=== PATIENT | female | born 1955 | race Caucasian/White ===

== ENCOUNTER 2016-09-30 10:51 | Inpatient (IN) | payer MEDICARE, OTHER ==
[~2016-09-30] VITALS: Ht 172.7 cm; Wt 99.0 kg
[2016-09-30 12:16] LABS: Basophils # (auto) 0 uL; Basophils % (auto) 0.3 % (0.0-2.0); Eosinophils # (auto) 0.1 uL; Eosinophils % (auto) 0.6 % (0.0-7.0); Hematocrit 39.1 % (36.0-46.0); Hemoglobin 13.2 g/dL (12.2-16.2); Lymphocytes # (auto) 1.8 uL; Lymphocytes % (auto) 12.9 % (10.0-50.0); Mean Corpuscular Hemoglobin 34.2 pg (28.0-32.0); Mean Corpuscular Hgb Conc. 33.8 g/dL (32.0-36.0); Mean Corpuscular Volume 101.2 fL (80.0-100.0); Mean Platelet Volume 7.8 fL (7.4-10.4); Monocytes # (auto) 1.2 uL; Monocytes % (auto) 8.5 % (0.0-12.0); Neutrophils # (auto) 10.8 uL; Neutrophils % (auto) 77.7 % (37.0-80.0); Platelet Count (auto) 416 10^3/uL (140-450); Red Cell Distribution Width 14.4 % (11.6-16.0); White Blood Cell 13.9 10^3/uL (4.4-10.8)
[2016-09-30] MEDS ORDERED: SODIUM CHLORIDE 0.9% 500 ML IVB ONE (12:36)
[2016-09-30 12:40] LABS: Albumin 3.1 g/dL (3.4-5.0); Alkaline Phosphatase 140 U/L (45-117); Anion Gap 10 (5-15); Aspartate Aminotransferase 165 U/L (15-37); BUN/Creatinine Ratio 28.4; Bilirubin, Total 1.1 mg/dL (0.2-1.0); Blood Urea Nitrogen 19 mg/dL (7-18); Carbon Dioxide 28 mmol/L (21-32); Chloride 97 mmol/L (98-107); GFR African American 116 mL/min; GFR Non-African American 96 mL/min; Glucose 112 mg/dL (74-106); Magnesium 2.5 mg/dL (1.6-2.6); Potassium 3.5 mmol/L (3.5-5.1); Sodium 135 mmol/L (136-145); Total Protein 6.4 g/dL (6.4-8.2)
[2016-09-30 15:36] LABS: Urine RBC None Seen /hpf (0 - 4)
[2016-09-30 15:54] LABS: Urine Bilirubin Negative (Negative); Urine Blood Negative /uL (Negative); Urine Color Yellow (Yellow); Urine Glucose Normal (Normal); Urine Ketone Negative (Negative); Urine Nitrite Negative (Negative); Urine Squamous Epithelial Cell FEW /hpf (<5); Urine Urobilinogen Normal (Negative)
[2016-09-30] MEDS ORDERED: cefTRIAXone 1GM/50ML D5W 50 ML IV ONE (16:45)
[2016-09-30] MEDS ORDERED: NALBUPHINE HCL 10 MG/1ml INJECTION IV ONE (17:00)
[2016-09-30] MEDS ORDERED: ONDANSETRON HCL 4 MG/2 ML VIAL IV ONE (17:00)
[2016-09-30] MEDS ORDERED: ONDANSETRON HCL 4 MG/2 ML VIAL IV PRN (18:45)
[2016-09-30] MEDS ORDERED: ACETAMINOPHEN 325 MG TAB PO PRN (18:45)
[2016-09-30] MEDS ORDERED: TEMAZEPAM 15 MG CAP PO PRN (18:45)
[2016-09-30] MEDS ORDERED: DOCUSATE SOD 100 MG CAP PO PRN (18:45)
[2016-09-30] MEDS ORDERED: MORPHINE SULF INJ 2 MG/ML SYRINGE 1ML IV PRN (18:45)
[2016-09-30] MEDS ORDERED: ALENDRONATE SODIUM 10 MG TAB PO SCH (18:45)
[2016-09-30] MEDS ORDERED: NITROGLYCERIN 0.4 MG SL TAB SL PRN (18:45)
[2016-09-30] MEDS ORDERED: amLODIPine BESYLATE 5 MG TAB PO ONE (19:00)
[2016-09-30] MEDS ORDERED: ENOXAPARIN SOD 40 MG/0.4 ML SYRINGE SC ONE (19:00)
[2016-09-30] MEDS ORDERED: POTASSIUM CHL 10 Meq TABLET PO ONE (19:00)
[2016-09-30] MEDS ORDERED: FUROSEMIDE 20 MG TAB PO ONE (19:00)
[2016-09-30] MEDS ORDERED: PANTOPRAZOLE 40 MG TAB PO ONE (19:00)
[2016-09-30] MEDS: MULTIPLE VITAMIN TAB PO SCH (19:24)
[2016-09-30 21:45] VITALS: BP 122/71
[2016-09-30 22:00] VITALS: BP 122/71
[2016-09-30] MEDS: MORPHINE SULF 30 mg ER tab PO SCH (22:00)
[2016-09-30] MEDS ORDERED: FAMOTIDINE 20 MG TAB PO SCH (22:00)
[2016-09-30] MEDS: GABAPENTIN 400 MG CAP PO SCH (23:10)
[2016-09-30] MEDS: HYDROcodone-ACET 5/325MG TAB PO PRN (23:10)
[2016-09-30] MEDS: SODIUM CHLOR 0.9% PF (SALINE LOCK) 10ML VIAL IV SCH (23:10)
[2016-09-30] MEDS: NORTRIPTYLINE HCL 25 MG CAP PO SCH (23:11)
[2016-09-30] MEDS: PARoxetine 20 MG TAB PO SCH (23:12)
[2016-09-30] MEDS: ACYCLOVIR 400 MG TAB PO SCH (23:12)
[2016-10-01] MEDS: CYCLOBENZAPRINE HCL 10 MG TAB PO PRN ×2 (00:47→15:05)
[2016-10-01] MEDS: HYDROcodone-ACET 5/325MG TAB PO PRN ×3 (05:22→17:40)
[2016-10-01 05:37] VITALS: BP 125/66
[2016-10-01] MEDS: FUROSEMIDE 20 MG TAB PO SCH ×2 (06:33→17:41)
[2016-10-01] MEDS: SODIUM CHLOR 0.9% PF (SALINE LOCK) 10ML VIAL IV SCH ×3 (06:33→21:54)
[2016-10-01] MEDS: ACYCLOVIR 400 MG TAB PO SCH ×3 (06:34→21:55)
[2016-10-01] MEDS: GABAPENTIN 400 MG CAP PO SCH ×3 (06:34→21:54)
[2016-10-01] MEDS: LEVOTHYROXINE SODIUM 50 MCG TAB PO SCH (06:34)
[2016-10-01 07:15] LABS: Basophils # (auto) 0.1 uL; Basophils % (auto) 0.6 % (0.0-2.0); DEFINITIVE VIEW TRANSMISSION; Eosinophils # (auto) 0.3 uL; Hematocrit 40.7 % (36.0-46.0); Hemoglobin 13.4 g/dL (12.2-16.2); Lymphocytes # (auto) 3.1 uL; Lymphocytes % (auto) 28.5 % (10.0-50.0); Mean Corpuscular Hemoglobin 33.8 pg (28.0-32.0); Mean Corpuscular Hgb Conc. 32.8 g/dL (32.0-36.0); Mean Corpuscular Volume 103.1 fL (80.0-100.0); Mean Platelet Volume 7.8 fL (7.4-10.4); Monocytes # (auto) 1.1 uL; Monocytes % (auto) 10.2 % (0.0-12.0); Neutrophils # (auto) 6.2 uL; Neutrophils % (auto) 57.7 % (37.0-80.0); Platelet Count (auto) 431 10^3/uL (140-450); Red Cell Distribution Width 15.1 % (11.6-16.0); White Blood Cell 10.8 10^3/uL (4.4-10.8)
[2016-10-01 07:17] VITALS: BP 106/58
[2016-10-01 07:28] LABS: INR 0.98 (0.9-1.15); Prothrombin Time 10.6 sec (9.37-12.3)
[2016-10-01 07:44] LABS: BUN/Creatinine Ratio 15.9; Bilirubin, Total 0.7 mg/dL (0.2-1.0); Calcium 8.8 mg/dL (8.5-10.1); Total Protein 6.3 g/dL (6.4-8.2)
[2016-10-01 07:46] LABS: Potassium 2.9 mmol/L (3.5-5.1)
[2016-10-01] MEDS: BOOST PLUS 8 ounce PO SCH ×3 (08:00→17:41)
[2016-10-01] MEDS: cefTRIAXone 1GM/50ML D5W 50 ML IV SCH (09:33)
[2016-10-01] MEDS: ENOXAPARIN SOD 40 MG/0.4 ML SYRINGE SC SCH (09:33)
[2016-10-01] MEDS: POTASSIUM CHL 10 Meq TABLET PO SCH (09:34)
[2016-10-01] MEDS: MULTIPLE VITAMIN TAB PO SCH (09:34)
[2016-10-01] MEDS: MORPHINE SULF 30 mg ER tab PO SCH ×2 (09:34→21:54)
[2016-10-01] MEDS: PANTOPRAZOLE 40 MG TAB PO SCH (09:35)
[2016-10-01] MEDS: amLODIPine BESYLATE 5 MG TAB PO SCH (09:35)
[2016-10-01] MEDS: PARoxetine 20 MG TAB PO SCH ×2 (09:35→21:54)
[2016-10-01] MEDS: CHLORTHALIDONE 25MG PO SCH (09:57)
[2016-10-01] MEDS ORDERED: POTASSIUM CHL 20 Meq TABLET PO ONE ×2 (10:00→17:15)
[2016-10-01 11:42] VITALS: BP 119/82
[2016-10-01 15:55] VITALS: BP 115/57
[2016-10-01] MEDS: NORTRIPTYLINE HCL 25 MG CAP PO SCH (21:54)
[2016-10-01 22:00] VITALS: BP 111/61
[2016-10-02] MEDS: HYDROcodone-ACET 5/325MG TAB PO PRN ×2 (02:07→06:11)
[2016-10-02 05:00] VITALS: BP 100/61
[2016-10-02] MEDS: SODIUM CHLOR 0.9% PF (SALINE LOCK) 10ML VIAL IV SCH (06:01)
[2016-10-02] MEDS: ACYCLOVIR 400 MG TAB PO SCH (06:02)
[2016-10-02] MEDS: FUROSEMIDE 20 MG TAB PO SCH (06:02)
[2016-10-02] MEDS: GABAPENTIN 400 MG CAP PO SCH (06:02)
[2016-10-02 06:10] LABS: Albumin 2.8 g/dL (3.4-5.0); Potassium 3.1 mmol/L (3.5-5.1)
[2016-10-02 06:13] LABS: Bilirubin, Total 0.3 mg/dL (0.2-1.0); Total Protein 5.7 g/dL (6.4-8.2)
[2016-10-02] MEDS: LEVOTHYROXINE SODIUM 50 MCG TAB PO SCH (06:17)
[2016-10-02] MEDS: BOOST PLUS 8 ounce PO SCH ×2 (08:00→12:00)
[2016-10-02 08:08] VITALS: BP 117/72
[2016-10-02] MEDS: CHLORTHALIDONE 25MG PO SCH (10:00)
[2016-10-02] MEDS: amLODIPine BESYLATE 5 MG TAB PO SCH (10:13)
[2016-10-02] MEDS: cefTRIAXone 1GM/50ML D5W 50 ML IV SCH (10:13)
[2016-10-02] MEDS: MULTIPLE VITAMIN TAB PO SCH (10:13)
[2016-10-02] MEDS: POTASSIUM CHL 10 Meq TABLET PO SCH (10:14)
[2016-10-02] MEDS: ENOXAPARIN SOD 40 MG/0.4 ML SYRINGE SC SCH (10:14)
[2016-10-02] MEDS: PARoxetine 20 MG TAB PO SCH (10:14)
[2016-10-02] MEDS: PANTOPRAZOLE 40 MG TAB PO SCH (10:14)
[2016-10-02] MEDS: MORPHINE SULF 30 mg ER tab PO SCH (10:14)
[2016-10-02] MEDS ORDERED: POTASSIUM CHL 20 Meq TABLET PO ONE (10:15)
[2016-10-02 11:13] VITALS: BP 117/72
[2016-10-02] MEDS: CYCLOBENZAPRINE HCL 10 MG TAB PO PRN (11:46)
[2016-10-02 12:47] VITALS: BP 109/58
== END 2016-10-02 14:20 | disposition home health service (06) | DRG 91 ==
LOC: ER 10:55 → TELE 10:56 → TELE-WESTW 21:50
PROVIDERS: ADMIT Internal Medicine; ATTEND Internal Medicine
DX: G92 Toxic encephalopathy (principal); I50.43 Acute on chronic combined systolic (congestive) and diastolic (congestive) heart failure; N39.0 Urinary tract infection, site not specified; E87.1 Hypo-osmolality and hyponatremia; E44.0 Moderate protein-calorie malnutrition; G89.4 Chronic pain syndrome; E78.5 Hyperlipidemia, unspecified; I11.0 Hypertensive heart disease with heart failure; R55 Syncope and collapse; E03.9 Hypothyroidism, unspecified; F10.20 Alcohol dependence, uncomplicated; F17.210 Nicotine dependence, cigarettes, uncomplicated; M19.90 Unspecified osteoarthritis, unspecified site; T50.905A Adverse effect of unspecified drugs, medicaments and biological substances, initial encounter; Z90.89 Acquired absence of other organs; Z88.1 Allergy status to other antibiotic agents; Z68.33 Body mass index [BMI] 33.0-33.9, adult
CPT/HCPCS: 36415; 70450; 71020; 74176; 76705; 80053; 80307; 80320; 81001; 82140; 82962; 83735; 84443; 84484; 85025; 85610; 87040; 87086; 92610; 93005; 93306; 93886; 94761; 96361; 96365; 96372; 96375; J0696; J2405

== ENCOUNTER 2021-02-11 14:13 | Inpatient (IN) | payer MEDICARE, OTHER ==
[~2021-02-11] VITALS: Ht 165.1 cm; Wt 83.5 kg
[2021-02-11 14:57] LABS: Basophils # (auto) 0.2 10 ^3/uL (0-0.2); Basophils % (auto) 1.3 % (0.0-2.0); Eosinophils # (auto) 0.3 10 ^3/uL (0-0.8); Eosinophils % (auto) 1.9 % (0.0-7.0); Hematocrit 33.3 % (36.0-46.0); Hemoglobin 10.7 g/dL (12.2-16.2); Lymphocytes # (auto) 2.2 10 ^3/uL (0.4-5.4); Lymphocytes % (auto) 14.6 % (10.0-50.0); Mean Corpuscular Hemoglobin 27.9 pg (28.0-32.0); Mean Corpuscular Hgb Conc. 32.1 g/dL (32.0-36.0); Mean Corpuscular Volume 87.1 fL (80.0-100.0); Monocytes # (auto) 1.9 10 ^3/uL (0-1.3); Monocytes % (auto) 12.9 % (0.0-12.0); Neutrophils # (auto) 10.3 10 ^3/uL (1.6-8.6); Neutrophils % (auto) 69.3 % (37.0-80.0); Nucleated Red Blood Cells % 0.1 %; Red Blood Cells 3.82 10^6/uL (4.0-5.20); Red Cell Distribution Width 17.1 % (11.8-14.3); White Blood Cell 14.8 10^3/uL (4.4-10.8)
[2021-02-11 15:11] LABS: BUN/Creatinine Ratio 15.5; Calcium 8.7 mg/dL (8.5-10.1); Potassium 3.3 mmol/L (3.5-5.1)
[2021-02-11 15:13] LABS: Bilirubin, Total 1.1 mg/dL (0.2-1.0); Total Protein 6.4 g/dL (6.4-8.2)
[2021-02-11 15:14] LABS: INR 1.21 (0.9-1.15)
[2021-02-11] MEDS ORDERED: MORPHINE SULFATE 4 MG/ML SYR/VIAL IV ONE (17:45)
[2021-02-11] MEDS ORDERED: ONDANSETRON HCL 4 MG/2 ML VIAL IV ONE (17:45)
[2021-02-11] MEDS ORDERED: HYDROcodone-ACET 5/325MG TAB PO PRN (19:45)
[2021-02-11] MEDS ORDERED: ACETAMINOPHEN 500 MG TAB PO PRN (19:45)
[2021-02-11] MEDS ORDERED: MORPHINE SULFATE INJECTION 2 MG/ML SYRG IV PRN (19:45)
[2021-02-11] MEDS ORDERED: methylPREDNISolone SOD SUCC 125 MG/2 ML VL IV ONE (19:45)
[2021-02-11] MEDS ORDERED: NITROGLYCERIN 0.4 MG SL TAB SL PRN (19:45)
[2021-02-11] MEDS ORDERED: ONDANSETRON HCL 4 MG/2 ML VIAL IV PRN (19:45)
[2021-02-11] MEDS ORDERED: LORazepam 2MG/ML-1ML VIAL IV PRN (19:45)
[2021-02-11 23:00] LABS: Alcohol, Urine < 3.0 mg/dL (0-10); Amphetamine Screen, Urine NEGATIVE (NEGATIVE); Barbiturate Scree,Urine NEGATIVE (NEGATIVE); Benzodiazephine Screen, Urine NEGATIVE (NEGATIVE); Cannabinoid Screen, Urine NEGATIVE (NEGATIVE); Cocaine Screen, Urine NEGATIVE (NEGATIVE); Opiate Scree,Urine POSITIVE (NEGATIVE); Phencyclidine Screen, Urine NEGATIVE (NEGATIVE)
[2021-02-11] MEDS: BUDESONIDE (INHALATION) 0.5 MG/2 ML NEB NEB SCH (23:00)
[2021-02-12 05:22] LABS: Basophils # (auto) 0.1 10 ^3/uL (0-0.2); Basophils % (auto) 1.1 % (0.0-2.0); Eosinophils # (auto) 0 10 ^3/uL (0-0.8); Eosinophils % (auto) 0.1 % (0.0-7.0); Hematocrit 33.1 % (36.0-46.0); Hemoglobin 10.7 g/dL (12.2-16.2); Lymphocytes # (auto) 0.4 10 ^3/uL (0.4-5.4); Lymphocytes % (auto) 6.1 % (10.0-50.0); Mean Corpuscular Hemoglobin 28.2 pg (28.0-32.0); Mean Corpuscular Hgb Conc. 32.2 g/dL (32.0-36.0); Mean Corpuscular Volume 87.6 fL (80.0-100.0); Monocytes # (auto) 0.1 10 ^3/uL (0-1.3); Monocytes % (auto) 2.1 % (0.0-12.0); Neutrophils # (auto) 6.5 10 ^3/uL (1.6-8.6); Neutrophils % (auto) 90.6 % (37.0-80.0); Red Blood Cells 3.77 10^6/uL (4.0-5.20); Red Cell Distribution Width 17.9 % (11.8-14.3); White Blood Cell 7.1 10^3/uL (4.4-10.8)
[2021-02-12 05:41] LABS: BUN/Creatinine Ratio 12.7; Calcium 8.3 mg/dL (8.5-10.1); Potassium 3.8 mmol/L (3.5-5.1)
[2021-02-12] MEDS: ALBUTEROL SULF 2.5 MG/0.5ML(0.5%) NEB SOLN NEB SCH ×3 (06:05→18:52)
[2021-02-12] MEDS: IPRATROPIUM BROM 0.5 MG/2.5ML INH SOL NEB SCH ×3 (06:05→18:52)
[2021-02-12] MEDS: BUDESONIDE (INHALATION) 0.5 MG/2 ML NEB NEB SCH ×2 (06:06→18:52)
[2021-02-12] MEDS: cefTRIAXone 1GM/50ML D5W 50 ML IV SCH (08:45)
[2021-02-12] MEDS: AZITHROMYCIN 500MG/ 250ML 250 ML IV SCH (09:43)
[2021-02-12] MEDS: FAMOTIDINE 20 MG TAB PO SCH (09:43)
[2021-02-12] MEDS ORDERED: ALBU108A5 INH (11:23)
[2021-02-12] MEDS ORDERED: PANT40T PO (11:23)
[2021-02-12] MEDS ORDERED: POTA-264 PO (11:23)
[2021-02-12] MEDS ORDERED: PERCOT PO (11:23)
[2021-02-12] MEDS ORDERED: BUSP7.5T8 PO (11:23)
[2021-02-12] MEDS ORDERED: PARO1TAB33 PO (11:23)
[2021-02-12] MEDS ORDERED: SUCR1TAB PO (11:23)
[2021-02-12] MEDS ORDERED: BUDE1AER4 INH (11:23)
[2021-02-12] MEDS ORDERED: AMLO-489 PO (11:23)
[2021-02-12] MEDS ORDERED: CYCL-614 PO (11:23)
[2021-02-12] MEDS ORDERED: HYDRX10T PO (11:23)
[2021-02-12] MEDS ORDERED: ALEN70TA74 PO (11:23)
[2021-02-12] MEDS ORDERED: GABA800T97 PO (11:23)
[2021-02-12] MEDS: guaiFENesin-DM 100/10mg/5ml SYR PO PRN ×3 (12:53→23:21)
[2021-02-12] MEDS: MORPHINE SULFATE INJECTION 2 MG/ML SYRG IV PRN ×2 (14:15→20:36)
[2021-02-12 17:00] VITALS: BP 111/71
[2021-02-12 17:16] VITALS: BP 111/71
[2021-02-12] MEDS ORDERED: CEL100T PO (17:26)
[2021-02-12] MEDS ORDERED: LEVO50TA7 PO (17:26)
[2021-02-12] MEDS ORDERED: FURO40TA4 PO (17:26)
[2021-02-12] MEDS ORDERED: APIX5TAB PO (17:26)
[2021-02-12 22:00] VITALS: BP 116/51
[2021-02-13] MEDS: MORPHINE SULFATE INJECTION 2 MG/ML SYRG IV PRN ×2 (02:33→19:08)
[2021-02-13 05:00] VITALS: BP 110/56
[2021-02-13] MEDS: IPRATROPIUM BROM 0.5 MG/2.5ML INH SOL NEB SCH ×3 (06:00→18:31)
[2021-02-13] MEDS: ALBUTEROL SULF 2.5 MG/0.5ML(0.5%) NEB SOLN NEB SCH ×3 (06:00→18:31)
[2021-02-13 06:40] LABS: Basophils # (auto) 0.1 10 ^3/uL (0-0.2); Basophils % (auto) 0.8 % (0.0-2.0); Eosinophils # (auto) 0.1 10 ^3/uL (0-0.8); Eosinophils % (auto) 0.9 % (0.0-7.0); Hematocrit 30.4 % (36.0-46.0); Hemoglobin 10.1 g/dL (12.2-16.2); Lymphocytes # (auto) 2.8 10 ^3/uL (0.4-5.4); Lymphocytes % (auto) 19.5 % (10.0-50.0); Mean Corpuscular Hgb Conc. 33.1 g/dL (32.0-36.0); Mean Corpuscular Volume 87.5 fL (80.0-100.0); Monocytes # (auto) 1.8 10 ^3/uL (0-1.3); Monocytes % (auto) 12.6 % (0.0-12.0); Neutrophils # (auto) 9.6 10 ^3/uL (1.6-8.6); Neutrophils % (auto) 66.2 % (37.0-80.0); Nucleated Red Blood Cells % 0.1 %; Red Blood Cells 3.48 10^6/uL (4.0-5.20); Red Cell Distribution Width 17.8 % (11.8-14.3); White Blood Cell 14.5 10^3/uL (4.4-10.8)
[2021-02-13] MEDS ORDERED: VANCOMYCIN HCL 1000 MG VL ONE (07:08)
[2021-02-13] MEDS ORDERED: fentaNYL CITRATE 100 MCG/2 ML VL ONE (07:29)
[2021-02-13] MEDS ORDERED: MIDAZOLAM HCL 2MG/2ML 2ml VIAL (1mg/ml) ONE (07:30)
[2021-02-13] MEDS ORDERED: LIDOCAINE 1% HCL (LOCAL ANESTH.) INJ 20ML MDV ONE (07:40)
[2021-02-13] MEDS ORDERED: DexAMETHasone SOD PHOS 10MG/1ML VIAL INJ ONE (07:48)
[2021-02-13] MEDS ORDERED: PROPOFOL 10 MG/ML 20 ML IV ONE (07:48)
[2021-02-13] MEDS ORDERED: MIDAZOLAM HCL 2MG/2ML 2ml VIAL (1mg/ml) IV PRN (08:15)
[2021-02-13] MEDS ORDERED: MORPHINE SULFATE 4 MG/ML SYR/VIAL IV PRN (08:15)
[2021-02-13] MEDS ORDERED: hydrALAZINE HCL 20 MG/ML VL IV PRN (08:15)
[2021-02-13] MEDS ORDERED: ONDANSETRON HCL 4 MG/2 ML VIAL IV PRN (08:15)
[2021-02-13] MEDS ORDERED: LABETALOL HCL 5 MG/ML 4ML SYRINGE IV PRN (08:15)
[2021-02-13] MEDS ORDERED: HYDROmorphone HCL 2 MG/ML VL IV PRN (08:15)
[2021-02-13] MEDS ORDERED: ePHEDrine SULFATE 50 MG/ML AMP IV PRN (08:15)
[2021-02-13] MEDS ORDERED: ACCU-CHEK COMFORT CURVE STRIP VI ONE (08:15)
[2021-02-13 09:06] LABS: BUN/Creatinine Ratio 20.7; Calcium 8.7 mg/dL (8.5-10.1); Potassium 4.1 mmol/L (3.5-5.1)
[2021-02-13] MEDS: cefTRIAXone 1GM/50ML D5W 50 ML IV SCH (09:49)
[2021-02-13] MEDS: methylPREDNISolone SOD SUCC 40 MG/ML VL IV SCH (09:49)
[2021-02-13] MEDS: FAMOTIDINE 20 MG TAB PO SCH (09:50)
[2021-02-13] MEDS: AZITHROMYCIN 500MG/ 250ML 250 ML IV SCH (10:00)
[2021-02-13] MEDS: BUDESONIDE (INHALATION) 0.5 MG/2 ML NEB NEB SCH ×2 (12:05→18:31)
[2021-02-13 13:00] VITALS: BP 115/67
[2021-02-13 14:54] VITALS: BP 115/67
[2021-02-13] MEDS: guaiFENesin-DM 100/10mg/5ml SYR PO PRN ×2 (16:35→21:44)
[2021-02-13 17:00] VITALS: BP 116/65
[2021-02-13 22:00] VITALS: BP 135/77
[2021-02-14 05:00] VITALS: BP 140/63
[2021-02-14] MEDS: BUDESONIDE (INHALATION) 0.5 MG/2 ML NEB NEB SCH ×2 (07:00→18:38)
[2021-02-14] MEDS: ALBUTEROL SULF 2.5 MG/0.5ML(0.5%) NEB SOLN NEB SCH ×3 (07:00→18:38)
[2021-02-14] MEDS: IPRATROPIUM BROM 0.5 MG/2.5ML INH SOL NEB SCH ×3 (07:00→18:38)
[2021-02-14] MEDS: cefTRIAXone 1GM/50ML D5W 50 ML IV SCH (08:49)
[2021-02-14] MEDS: guaiFENesin-DM 100/10mg/5ml SYR PO PRN ×2 (08:53→14:12)
[2021-02-14] MEDS: FAMOTIDINE 20 MG TAB PO SCH (09:05)
[2021-02-14] MEDS: MORPHINE SULFATE INJECTION 2 MG/ML SYRG IV PRN ×2 (09:05→13:57)
[2021-02-14] MEDS: methylPREDNISolone SOD SUCC 40 MG/ML VL IV SCH (09:06)
[2021-02-14] MEDS: AZITHROMYCIN 500MG/ 250ML 250 ML IV SCH (10:11)
[2021-02-14 11:28] VITALS: BP 140/89
[2021-02-14] MEDS ORDERED: PRED1PAK9 PO (15:40)
[2021-02-14] MEDS ORDERED: DOX100T PO (15:40)
[2021-02-14 17:00] VITALS: BP 142/80
[2021-02-14] MEDS ORDERED: DOXYCYCLINE 100 MG TAB/CAP PO SCH (22:00)
== END 2021-02-14 20:15 | disposition home health service (06) | DRG 498 ==
LOC: EDBD 14:13 → ER 14:13 → TELE 19:31 → TELE-WESTW 02-12 16:48
PROVIDERS: ADMIT Nurse Practitioner Acute Care; ATTEND Internal Medicine Pulmonary Disease
PROC: 0QPB04Z Removal of Internal Fixation Device from Right Lower Femur, Open Approach (ICD-10-PCS; principal; 2021-02-13 07:23)
DX: T84.84XA Pain due to internal orthopedic prosthetic devices, implants and grafts, initial encounter (principal); J96.01 Acute respiratory failure with hypoxia; J18.9 Pneumonia, unspecified organism; J44.1 Chronic obstructive pulmonary disease with (acute) exacerbation; E44.0 Moderate protein-calorie malnutrition; J44.0 Chronic obstructive pulmonary disease with (acute) lower respiratory infection; F17.210 Nicotine dependence, cigarettes, uncomplicated; D64.9 Anemia, unspecified; Z20.822 Contact with and (suspected) exposure to COVID-19; I10 Essential (primary) hypertension; E78.5 Hyperlipidemia, unspecified; Y83.8 Other surgical procedures as the cause of abnormal reaction of the patient, or of later complication, without mention of misadventure at the time of the procedure; W18.39XA Other fall on same level, initial encounter; E87.6 Hypokalemia; Z88.0 Allergy status to penicillin; Z90.89 Acquired absence of other organs; Z68.30 Body mass index [BMI] 30.0-30.9, adult; Y93.89 Activity, other specified; Y92.098 Other place in other non-institutional residence as the place of occurrence of the external cause; Y99.8 Other external cause status
CPT/HCPCS: 36415; 71045; 73502; 73560; 73562; 76000; 80048; 80053; 80307; 82962; 83036; 84702; 85025; 85610; 85730; 86850; 86900; 86901; 87426; 87804; 93005; 93971; 94640; G0378; J0696; J1100; J2001; J2250; J2704

== ENCOUNTER 2021-05-10 11:26 | Inpatient (IN) | payer MEDICARE ==
[~2021-05-10] VITALS: Ht 152.4 cm; Wt 79.9 kg
[~2021-05-10 11:26] MED LIST: ALBU108A5 INH; ALEN70TA74 PO; AMLO-489 PO; APIX5TAB PO; BUDE1AER4 INH; BUSP7.5T8 PO; CEL100T PO; CYCL-614 PO; DOX100T PO; FURO40TA4 PO; GABA800T97 PO; HYDRX10T PO; LEVO50TA7 PO; PANT40T PO; PARO1TAB33 PO; PERCOT PO; POTA-264 PO; PRED1PAK9 PO; SUCR1TAB PO
[2021-05-10] MEDS ORDERED: SODIUM CHLORIDE 0.9% 1,000 ML IVB ONE (11:45)
[2021-05-10 13:13] LABS: Hemoglobin 12.2 g/dL (12.2-16.2)
[2021-05-10 13:15] LABS: Hematocrit 38.9 % (36.0-46.0); Mean Corpuscular Hemoglobin 23.8 pg (28.0-32.0); Mean Corpuscular Hgb Conc. 31.3 g/dL (32.0-36.0); Mean Corpuscular Volume 75.8 fL (80.0-100.0); Red Blood Cells 5.13 10^6/uL (4.0-5.20); White Blood Cell 28.1 10^3/uL (4.4-10.8)
[2021-05-10 13:18] LABS: Urine Bacteria NONE SEEN /hpf (None Seen); Urine Blood Negative /uL (Negative); Urine Specific Gravity 1.016 (1.001-1.035); Urine WBC 1 /hpf (0 - 5)
[2021-05-10 13:32] LABS: Albumin 3.8 g/dL (3.4-5.0); Calcium 9.4 mg/dL (8.5-10.1); Magnesium 2.8 mg/dL (1.6-2.6)
[2021-05-10 13:36] LABS: Red Cell Distribution Width 23.1 % (11.8-14.3)
[2021-05-10 13:38] LABS: Basophils % (manual) 0 (0.0-2.0); Blast Cells 0; Metamyelocytes % 0; Myelocytes % 0; Promyelocytes % 0; Reactive Lymphocytes 0
[2021-05-10 13:39] LABS: Amphetamine Screen, Urine NEGATIVE (NEGATIVE); Barbiturate Scree,Urine NEGATIVE (NEGATIVE); Benzodiazephine Screen, Urine NEGATIVE (NEGATIVE); Cannabinoid Screen, Urine NEGATIVE (NEGATIVE); Cocaine Screen, Urine NEGATIVE (NEGATIVE); Opiate Scree,Urine POSITIVE (NEGATIVE); Phencyclidine Screen, Urine NEGATIVE (NEGATIVE)
[2021-05-10 13:41] LABS: BUN/Creatinine Ratio 27.1; Bilirubin, Total 3.5 mg/dL (0.2-1.0); CRP High Sensitivity 6.5 mg/dL (< 0.3); Total Protein 7.8 g/dL (6.4-8.2)
[2021-05-10 13:52] LABS: Potassium 2.7 mmol/L (3.5-5.1)
[2021-05-10 13:55] LABS: Band Neutrophils % (manual) 3; Eosinophils % (manual) 1 (0-7); Lymphocytes % (manual) 6 (10.0-50.0); Monocytes % (manual) 10 (0-12)
[2021-05-10] MEDS ORDERED: POTASSIUM CHL 20MEQ/50ML 50 ML IV ONE (14:15)
[2021-05-10] MEDS ORDERED: NITROGLYCERIN 0.4 MG SL TAB SL PRN (14:30)
[2021-05-10] MEDS ORDERED: DOCUSATE SOD 100 MG CAP PO PRN (14:30)
[2021-05-10] MEDS ORDERED: MORPHINE SULFATE INJECTION 2 MG/ML SYRG IV PRN (14:30)
[2021-05-10] MEDS ORDERED: ONDANSETRON HCL 4 MG/2 ML VIAL IV PRN (14:30)
[2021-05-10] MEDS ORDERED: ACETAMINOPHEN 325 MG TAB PO PRN (14:30)
[2021-05-10] MEDS ORDERED: VANCOMYCIN PER PHARMACY 0 MG IV SCH (14:45)
[2021-05-10] MEDS ORDERED: DEXTROSE (50%) 50ML SYRG IV PRN (15:00)
[2021-05-10] MEDS ORDERED: cefTRIAXone 1GM/50ML D5W 50 ML IV SCH (15:45)
[2021-05-10] MEDS: cefTRIAXone 1GM/50ML D5W 50 ML IV SCH (16:28)
[2021-05-10] MEDS ORDERED: VANCOMYCIN 1GM/250ML 250 ML IV ONE (16:30)
[2021-05-10] MEDS: ACCU-CHEK COMFORT CURVE STRIP VI SCH ×2 (17:00→23:59)
[2021-05-10] MEDS: InsuLIN REG 1unit/0.01ml Soln (100units/ml) SC SCH ×2 (17:00→23:59)
[2021-05-10 17:02] LABS: Cholesterol 178 mg/dL (< 200); HDL Cholesterol 116 mg/dL (40-59); LDL Cholesterol 59 mg/dL (< 100); Triglycerides 95 mg/dL (< 150)
[2021-05-10] MEDS: metroNIDAZOLE 500MG/100ML 100 ML IV SCH (23:49)
[2021-05-11] MEDS: POTASSIUM CHL 20 Meq TABLET PO SCH ×2 (00:05→10:13)
[2021-05-11] MEDS ORDERED: VANCOMYCIN 1GM/250ML 250 ML IV SCH (06:00)
[2021-05-11 06:02] LABS: Eosinophils # (auto) 0.3 10 ^3/uL (0-0.8); Monocytes # (auto) 2.1 10 ^3/uL (0-1.3)
[2021-05-11 06:03] LABS: Basophils # (auto) 0.1 10 ^3/uL (0-0.2); Basophils % (auto) 0.5 % (0.0-2.0); Eosinophils % (auto) 1.7 % (0.0-7.0); Hematocrit 29.4 % (36.0-46.0); Hemoglobin 9.3 g/dL (12.2-16.2); Lymphocytes % (auto) 10.9 % (10.0-50.0); Mean Corpuscular Hemoglobin 24.2 pg (28.0-32.0); Mean Corpuscular Hgb Conc. 31.7 g/dL (32.0-36.0); Mean Corpuscular Volume 76.4 fL (80.0-100.0); Monocytes % (auto) 11.3 % (0.0-12.0); Neutrophils # (auto) 14.1 10 ^3/uL (1.6-8.6); Neutrophils % (auto) 75.6 % (37.0-80.0); Red Blood Cells 3.85 10^6/uL (4.0-5.20); White Blood Cell 18.7 10^3/uL (4.4-10.8)
[2021-05-11 06:08] LABS: Red Cell Distribution Width 23.1 % (11.8-14.3)
[2021-05-11 06:19] LABS: Calcium 8.4 mg/dL (8.5-10.1)
[2021-05-11 06:24] LABS: Albumin 2.5 g/dL (3.4-5.0); Bilirubin, Total 2.5 mg/dL (0.2-1.0); Total Protein 5.7 g/dL (6.4-8.2)
[2021-05-11 06:32] LABS: Potassium 2.5 mmol/L (3.5-5.1)
[2021-05-11] MEDS: metroNIDAZOLE 500MG/100ML 100 ML IV SCH ×3 (06:42→22:28)
[2021-05-11] MEDS: ACCU-CHEK COMFORT CURVE STRIP VI SCH ×4 (07:19→22:30)
[2021-05-11] MEDS: InsuLIN REG 1unit/0.01ml Soln (100units/ml) SC SCH ×4 (07:23→22:30)
[2021-05-11] MEDS: POTASSIUM CHL 20MEQ/50ML 50 ML IV SCH ×3 (09:07→12:54)
[2021-05-11] MEDS: VANCOMYCIN 1GM/250ML 250 ML IV SCH (10:14)
[2021-05-11] MEDS ORDERED: POTASSIUM CHL 20 Meq TABLET PO ONE (12:00)
[2021-05-11 15:35] VITALS: BP 114/42
[2021-05-11] MEDS: cefTRIAXone 1GM/50ML D5W 50 ML IV SCH (17:19)
[2021-05-11 22:00] VITALS: BP 131/53
[2021-05-11] MEDS: MORPHINE SULFATE INJECTION 2 MG/ML SYRG IV PRN ×2 (22:29→23:09)
[2021-05-12] MEDS: VANCOMYCIN 1GM/250ML 250 ML IV SCH ×2 (00:11→14:04)
[2021-05-12 05:00] VITALS: BP 115/58
[2021-05-12] MEDS: InsuLIN REG 1unit/0.01ml Soln (100units/ml) SC SCH ×4 (07:00→22:52)
[2021-05-12] MEDS: metroNIDAZOLE 500MG/100ML 100 ML IV SCH ×3 (07:20→22:52)
[2021-05-12] MEDS: ACCU-CHEK COMFORT CURVE STRIP VI SCH ×4 (07:23→22:52)
[2021-05-12 08:00] VITALS: BP 122/61
[2021-05-12 08:12] LABS: Basophils # (auto) 0.1 10 ^3/uL (0-0.2); Basophils % (auto) 0.9 % (0.0-2.0); Eosinophils # (auto) 0.6 10 ^3/uL (0-0.8); Eosinophils % (auto) 4.9 % (0.0-7.0); Hematocrit 29.3 % (36.0-46.0); Hemoglobin 9.1 g/dL (12.2-16.2); Lymphocytes # (auto) 2.5 10 ^3/uL (0.4-5.4); Lymphocytes % (auto) 21.4 % (10.0-50.0); Mean Corpuscular Hemoglobin 24.1 pg (28.0-32.0); Mean Corpuscular Hgb Conc. 31.2 g/dL (32.0-36.0); Mean Corpuscular Volume 77.2 fL (80.0-100.0); Monocytes # (auto) 1.5 10 ^3/uL (0-1.3); Monocytes % (auto) 12.8 % (0.0-12.0); Neutrophils # (auto) 6.9 10 ^3/uL (1.6-8.6); Red Blood Cells 3.79 10^6/uL (4.0-5.20); White Blood Cell 11.5 10^3/uL (4.4-10.8)
[2021-05-12 08:15] LABS: Red Cell Distribution Width 23.8 % (11.8-14.3)
[2021-05-12 08:26] LABS: Albumin 2.5 g/dL (3.4-5.0); Calcium 8.1 mg/dL (8.5-10.1); Potassium 3.7 mmol/L (3.5-5.1)
[2021-05-12 08:30] LABS: BUN/Creatinine Ratio 29.7; Bilirubin, Total 1.4 mg/dL (0.2-1.0); Total Protein 5.3 g/dL (6.4-8.2)
[2021-05-12] MEDS: MORPHINE SULFATE INJECTION 2 MG/ML SYRG IV PRN ×3 (11:50→20:29)
[2021-05-12] MEDS: cefTRIAXone 1GM/50ML D5W 50 ML IV SCH (17:41)
[2021-05-12 22:00] VITALS: BP 115/67
[2021-05-13] MEDS: VANCOMYCIN 1GM/250ML 250 ML IV SCH (03:21)
[2021-05-13 05:00] VITALS: BP_SYST 133; BP_SYST 159; BP_DIAS 68; BP_DIAS 75
[2021-05-13] MEDS: MORPHINE SULFATE INJECTION 2 MG/ML SYRG IV PRN ×4 (05:34→20:32)
[2021-05-13] MEDS: metroNIDAZOLE 500MG/100ML 100 ML IV SCH (05:35)
[2021-05-13] MEDS: ACCU-CHEK COMFORT CURVE STRIP VI SCH ×4 (06:00→21:38)
[2021-05-13] MEDS: InsuLIN REG 1unit/0.01ml Soln (100units/ml) SC SCH ×4 (06:03→21:37)
[2021-05-13 08:49] LABS: Basophils # (auto) 0.2 10 ^3/uL (0-0.2); Basophils % (auto) 1.7 % (0.0-2.0); Hemoglobin 9.7 g/dL (12.2-16.2); Lymphocytes # (auto) 2.4 10 ^3/uL (0.4-5.4); Nucleated Red Blood Cells % 0.1 %; Red Cell Distribution Width 23.4 % (11.8-14.3)
[2021-05-13 08:51] LABS: Eosinophils # (auto) 0.7 10 ^3/uL (0-0.8); Eosinophils % (auto) 6.9 % (0.0-7.0); Hematocrit 30.6 % (36.0-46.0); Mean Corpuscular Hemoglobin 24.4 pg (28.0-32.0); Mean Corpuscular Hgb Conc. 31.7 g/dL (32.0-36.0); Monocytes # (auto) 1.2 10 ^3/uL (0-1.3); Monocytes % (auto) 12.3 % (0.0-12.0); Neutrophils # (auto) 5.5 10 ^3/uL (1.6-8.6); Neutrophils % (auto) 55.1 % (37.0-80.0); Red Blood Cells 3.98 10^6/uL (4.0-5.20); White Blood Cell 10.1 10^3/uL (4.4-10.8)
[2021-05-13 09:00] VITALS: BP 121/71
[2021-05-13 09:00] LABS: Albumin 2.7 g/dL (3.4-5.0); Calcium 8.3 mg/dL (8.5-10.1); Potassium 4.1 mmol/L (3.5-5.1)
[2021-05-13 09:04] LABS: BUN/Creatinine Ratio 18.8; Bilirubin, Total 1.2 mg/dL (0.2-1.0); Total Protein 5.6 g/dL (6.4-8.2)
[2021-05-13 13:00] VITALS: BP 123/62
[2021-05-13 17:00] VITALS: BP 125/71
[2021-05-13 22:00] VITALS: BP 129/66
[2021-05-13 23:30] VITALS: BP 126/77
[2021-05-14] MEDS: MORPHINE SULFATE INJECTION 2 MG/ML SYRG IV PRN ×3 (00:49→18:01)
[2021-05-14 05:00] VITALS: BP 142/81
[2021-05-14] MEDS: InsuLIN REG 1unit/0.01ml Soln (100units/ml) SC SCH ×4 (06:06→22:07)
[2021-05-14] MEDS: ACCU-CHEK COMFORT CURVE STRIP VI SCH ×4 (06:06→22:07)
[2021-05-14 08:01] LABS: Basophils # (auto) 0.2 10 ^3/uL (0-0.2); Eosinophils # (auto) 0.7 10 ^3/uL (0-0.8); Hemoglobin 9.8 g/dL (12.2-16.2); Nucleated Red Blood Cells % 0.2 %; White Blood Cell 8.9 10^3/uL (4.4-10.8)
[2021-05-14 08:03] LABS: Basophils % (auto) 2.8 % (0.0-2.0); Hematocrit 30.9 % (36.0-46.0); Lymphocytes # (auto) 2.5 10 ^3/uL (0.4-5.4); Lymphocytes % (auto) 28.2 % (10.0-50.0); Mean Corpuscular Hemoglobin 24.6 pg (28.0-32.0); Mean Corpuscular Hgb Conc. 31.8 g/dL (32.0-36.0); Mean Corpuscular Volume 77.3 fL (80.0-100.0); Monocytes # (auto) 1.2 10 ^3/uL (0-1.3); Neutrophils # (auto) 4.3 10 ^3/uL (1.6-8.6); Red Cell Distribution Width 23.1 % (11.8-14.3)
[2021-05-14 08:16] LABS: Potassium 3.8 mmol/L (3.5-5.1)
[2021-05-14 08:24] LABS: Albumin 2.7 g/dL (3.4-5.0); BUN/Creatinine Ratio 22.2; Bilirubin, Total 0.9 mg/dL (0.2-1.0); Calcium 8.5 mg/dL (8.5-10.1); Total Protein 5.6 g/dL (6.4-8.2)
[2021-05-14 09:18] VITALS: BP 142/72
[2021-05-14 14:30] VITALS: BP 130/49
[2021-05-14 16:38] VITALS: BP 132/71
[2021-05-14 22:00] VITALS: BP 141/79
[2021-05-14] MEDS: LORazepam 0.5 MG TAB PO PRN (22:07)
[2021-05-15 05:00] VITALS: BP 135/77
[2021-05-15] MEDS: InsuLIN REG 1unit/0.01ml Soln (100units/ml) SC SCH ×4 (06:15→21:51)
[2021-05-15] MEDS: ACCU-CHEK COMFORT CURVE STRIP VI SCH ×4 (06:15→21:51)
[2021-05-15] MEDS: MORPHINE SULFATE INJECTION 2 MG/ML SYRG IV PRN ×3 (06:19→17:28)
[2021-05-15 07:30] LABS: Basophils # (auto) 0.3 10 ^3/uL (0-0.2); Basophils % (auto) 2.7 % (0.0-2.0); Eosinophils # (auto) 0.7 10 ^3/uL (0-0.8); Eosinophils % (auto) 6.6 % (0.0-7.0); Hemoglobin 10.5 g/dL (12.2-16.2); Lymphocytes # (auto) 3.3 10 ^3/uL (0.4-5.4); Lymphocytes % (auto) 31.4 % (10.0-50.0); Mean Corpuscular Hemoglobin 24.4 pg (28.0-32.0); Mean Corpuscular Hgb Conc. 31.8 g/dL (32.0-36.0); Mean Corpuscular Volume 76.5 fL (80.0-100.0); Monocytes # (auto) 1.2 10 ^3/uL (0-1.3); Monocytes % (auto) 11.1 % (0.0-12.0); Neutrophils # (auto) 5.1 10 ^3/uL (1.6-8.6); Neutrophils % (auto) 48.2 % (37.0-80.0); Red Blood Cells 4.32 10^6/uL (4.0-5.20); Red Cell Distribution Width 23.6 % (11.8-14.3); White Blood Cell 10.6 10^3/uL (4.4-10.8)
[2021-05-15 07:48] LABS: Potassium 4.3 mmol/L (3.5-5.1)
[2021-05-15 07:57] LABS: Albumin 2.9 g/dL (3.4-5.0); Bilirubin, Total 0.9 mg/dL (0.2-1.0); Calcium 8.8 mg/dL (8.5-10.1); Total Protein 6.2 g/dL (6.4-8.2)
[2021-05-15 09:00] VITALS: BP 118/63
[2021-05-15] MEDS: LORazepam 0.5 MG TAB PO PRN ×2 (12:26→21:28)
[2021-05-15 13:00] VITALS: BP 121/61
[2021-05-15 17:00] VITALS: BP 135/72
[2021-05-15 22:00] VITALS: BP 137/74
[2021-05-16] MEDS: MORPHINE SULFATE INJECTION 2 MG/ML SYRG IV PRN ×4 (00:02→14:06)
[2021-05-16 05:00] VITALS: BP 124/73
[2021-05-16] MEDS: InsuLIN REG 1unit/0.01ml Soln (100units/ml) SC SCH ×2 (05:44→11:41)
[2021-05-16] MEDS: ACCU-CHEK COMFORT CURVE STRIP VI SCH ×2 (05:45→11:39)
[2021-05-16 06:02] LABS: Eosinophils # (auto) 0.6 10 ^3/uL (0-0.8); Hemoglobin 10.1 g/dL (12.2-16.2)
[2021-05-16 06:05] LABS: Basophils # (auto) 0.2 10 ^3/uL (0-0.2); Eosinophils % (auto) 5.5 % (0.0-7.0); Hematocrit 31.1 % (36.0-46.0); Lymphocytes # (auto) 3.5 10 ^3/uL (0.4-5.4); Lymphocytes % (auto) 33.8 % (10.0-50.0); Mean Corpuscular Hemoglobin 25.1 pg (28.0-32.0); Mean Corpuscular Hgb Conc. 32.4 g/dL (32.0-36.0); Mean Corpuscular Volume 77.7 fL (80.0-100.0); Monocytes # (auto) 1.1 10 ^3/uL (0-1.3); Monocytes % (auto) 10.7 % (0.0-12.0); Nucleated Red Blood Cells % 0.1 %; Red Blood Cells 4.01 10^6/uL (4.0-5.20); White Blood Cell 10.5 10^3/uL (4.4-10.8)
[2021-05-16 06:20] LABS: Albumin 2.6 g/dL (3.4-5.0); Calcium 8.6 mg/dL (8.5-10.1)
[2021-05-16 06:25] LABS: Bilirubin, Total 0.5 mg/dL (0.2-1.0); Total Protein 5.7 g/dL (6.4-8.2)
[2021-05-16 06:47] LABS: Red Cell Distribution Width 23.2 % (11.8-14.3)
[2021-05-16 09:00] VITALS: BP 130/80
[2021-05-16] MEDS: LORazepam 0.5 MG TAB PO PRN (11:19)
[2021-05-16 13:00] VITALS: BP 123/63
[2021-05-16 15:12] VITALS: BP 123/63
== END 2021-05-16 16:00 | DRG 917 ==
LOC: ER 11:26 → EDBD 11:26 → TELE 14:18 → WEST WING 05-11 11:43 → TELE-WESTW 05-12 23:45
PROVIDERS: ADMIT Family Medicine; ATTEND Internal Medicine
DX: T50.901A Poisoning by unspecified drugs, medicaments and biological substances, accidental (unintentional), initial encounter (principal); A41.9 Sepsis, unspecified organism; G92.8 Other toxic encephalopathy; L03.115 Cellulitis of right lower limb; L03.116 Cellulitis of left lower limb; E87.6 Hypokalemia; I10 Essential (primary) hypertension; I67.2 Cerebral atherosclerosis; J44.9 Chronic obstructive pulmonary disease, unspecified; D50.9 Iron deficiency anemia, unspecified; Z20.822 Contact with and (suspected) exposure to COVID-19; E03.9 Hypothyroidism, unspecified; G89.4 Chronic pain syndrome; F31.9 Bipolar disorder, unspecified; R73.9 Hyperglycemia, unspecified; F41.9 Anxiety disorder, unspecified; R53.81 Other malaise; R74.01 Elevation of levels of liver transaminase levels; Z88.0 Allergy status to penicillin; Z79.01 Long term (current) use of anticoagulants; Z86.711 Personal history of pulmonary embolism; Z87.891 Personal history of nicotine dependence; Z72.89 Other problems related to lifestyle; Y92.89 Other specified places as the place of occurrence of the external cause
CPT/HCPCS: 36415; 70450; 71045; 76700; 80053; 80061; 80202; 80307; 80320; 81001; 82728; 82962; 83036; 83605; 83735; 84443; 84484; 85007; 85025; 85027; 85379; 86141; 87040; 87426; 93005; 93306; 95819; 96361; 96365; 96366; 96368; 96372; 97163; G0378; J0696; J1815; J3490

== ENCOUNTER 2023-02-09 22:12 | Inpatient (IN) | payer MEDICARE ==
[~2023-02-09] VITALS: Ht 175.3 cm; Wt 91.7 kg
[~2023-02-09 22:12] MED LIST changes: -ALBU108A5 INH; -ALEN70TA74 PO; -AMLO-489 PO; +AMLO1TAB22 PO; -CEL100T PO; -CYCL-614 PO; -DOX100T PO; -FURO40TA4 PO; -HYDRX10T PO; -PANT40T PO; -PERCOT PO; -POTA-264 PO; -PRED1PAK9 PO; -SUCR1TAB PO
[2023-02-09] MEDS ORDERED: SODIUM CHLORIDE 0.9% 1,000 ML IV ONE (22:45)
[2023-02-09] MEDS ORDERED: ACCU-CHEK COMFORT CURVE STRIP VI ONE (22:45)
[2023-02-09] MEDS ORDERED: NALOXONE HCL 1MG/ML 2ML SYRINGE ONE ×2 (22:57→23:17)
[2023-02-09 23:00] VITALS: PULSE 104; RESP 16; O2SAT 94
[2023-02-09] MEDS ORDERED: NALOXONE HCL 1MG/ML 2ML SYRINGE IV ONE (23:15)
[2023-02-09 23:22] LABS: Hematocrit 39.3 % (36.0-46.0); Hemoglobin 12.4 g/dL (12.2-16.2); Mean Corpuscular Hemoglobin 26.8 pg (28.0-32.0); Mean Corpuscular Hgb Conc. 31.5 g/dL (32.0-36.0); Mean Corpuscular Volume 85.2 fL (80.0-100.0); Red Blood Cells 4.61 10^6/uL (4.0-5.20); Red Cell Distribution Width 19.9 % (11.8-14.3); White Blood Cell 25.1 10^3/uL (4.4-10.8)
[2023-02-09 23:26] LABS: Band Neutrophils % (manual) 0; Basophils % (manual) 0 (0.0-2.0); Blast Cells 0; Eosinophils % (manual) 0 (0-7); Metamyelocytes % 0; Myelocytes % 0; Promyelocytes % 0; Reactive Lymphocytes 0
[2023-02-09 23:38] LABS: Acetaminophen < 2.0 UG/ML (10.0-20.0); Alanine Aminotransferase 71 U/L (7-40); Alkaline Phosphatase 100 U/L (46-116); Anion Gap 8 (5-15); Aspartate Aminotransferase 128 U/L (13-40); BUN/Creatinine Ratio 8.7 (10.0-20.0); Blood Urea Nitrogen 20 mg/dL (9-23); Calcium 9.3 mg/dL (8.7-10.4); Carbon Dioxide 26 mmol/L (20-30); Chloride 102 mmol/L (98-107); Glucose 192 mg/dL (74-106); Potassium 4.6 mmol/L (3.5-5.1); Sodium 136 mmol/L (136-145)
[2023-02-09 23:39] LABS: Bilirubin, Total 0.6 mg/dL (0.2-1.0); Lactic Acid w/Reflex 4.4 mmol/L (0.4-2.0); Total Protein 6.1 g/dL (5.7-8.2)
[2023-02-09 23:53] LABS: Salicylate < 3.0 mg/dL (2.8-20.0)
[2023-02-10] VITALS (8 sets, daily range): BP systolic 105; BP diastolic 64; PULSE 80–92; RESP 18–20; O2SAT 92–99
[2023-02-10 00:08] LABS: Lymphocytes % (manual) 6 (10.0-50.0); Monocytes % (manual) 6 (0-12); Platelet Estimate Adequate
[2023-02-10] MEDS ORDERED: ASPirin 325 MG TAB PO ONE (00:15)
[2023-02-10] MEDS ORDERED: PIPERACILLIN-TAZOB 3.375GM 100 ML IV ONE (01:15)
[2023-02-10] MEDS ORDERED: VANCOMYCIN 1GM/250ML 250 ML IV ONE (01:15)
[2023-02-10] MEDS ORDERED: NALOXONE HCL 1MG/ML 2ML SYRINGE IV ONE ×2 (01:30→01:45)
[2023-02-10] MEDS ORDERED: ALBUMIN 25% 100 ML IV ONE (02:30)
[2023-02-10] MEDS ORDERED: LACTATED RINGER'S 2,000 ML IV ONE (02:30)
[2023-02-10] MEDS ORDERED: NOREPINEPHRINE 8 MG/250ML KIT 250 ML IV SCH (03:30)
[2023-02-10] MEDS ORDERED: NOREPINEPHRINE 8 MG/250ML KIT 250 ML IV ONE (03:35)
[2023-02-10] MEDS ORDERED: HEPARIN SODIUM (PORCINE) 5000 UNITS/ML 1ML VIAL IV ONE (03:45)
[2023-02-10 03:56] LABS: Base Excess -1.3 mmol/L (-2.0-2.0)
[2023-02-10 04:55] LABS: Urine Bacteria FEW /hpf (None Seen); Urine Blood 2+ /uL (Negative); Urine Clarity Clear (Clear); Urine Hyaline Cast FEW /lpf (0 - 2); Urine Mucus FEW (None Seen); Urine Protein, UAD Negative (Negative); Urine Specific Gravity 1.008 (1.001-1.035); Urine Urobilinogen Normal (Negative); Urine WBC 2 /hpf (0 - 5)
[2023-02-10 04:57] LABS: Urine Color Straw (Yellow)
[2023-02-10 05:08] LABS: Amphetamine Screen, Urine Neg (NEGATIVE); Barbiturate Scree,Urine Neg (NEGATIVE); Benzodiazephine Screen, Urine Neg (NEGATIVE); Cannabinoid Screen, Urine Neg (NEGATIVE); Cocaine Screen, Urine Neg (NEGATIVE); Opiate Scree,Urine Neg (NEGATIVE); Phencyclidine Screen, Urine Neg (NEGATIVE)
[2023-02-10] MEDS: HEPARIN DRIP/D5W 100UNITS/ML 250 ML IV SCH ×3 (06:22→20:10)
[2023-02-10 06:27] LABS: INR 1.31 (0.9-1.15); Partial Thromboplastin Time 63.6 SEC (24.5-34.5); Prothrombin Time 13.5 sec (9.3-11.8)
[2023-02-10 08:57] LABS: Basophils # (auto) 0.2 10 ^3/uL (0-0.2); Eosinophils # (auto) 0.1 10 ^3/uL (0-0.8); Hemoglobin 11.3 g/dL (12.2-16.2); Nucleated Red Blood Cells % 0.1 %; Red Cell Distribution Width 19.7 % (11.8-14.3)
[2023-02-10 08:58] LABS: Basophils % (auto) 0.7 % (0.0-2.0); Eosinophils % (auto) 0.5 % (0.0-7.0); Hematocrit 35.7 % (36.0-46.0); Lymphocytes # (auto) 2.3 10 ^3/uL (0.4-5.4); Lymphocytes % (auto) 10.1 % (10.0-50.0); Mean Corpuscular Hemoglobin 26.5 pg (28.0-32.0); Mean Corpuscular Hgb Conc. 31.7 g/dL (32.0-36.0); Mean Corpuscular Volume 83.5 fL (80.0-100.0); Monocytes % (auto) 8.6 % (0.0-12.0); Neutrophils # (auto) 18.3 10 ^3/uL (1.6-8.6); Neutrophils % (auto) 80.1 % (37.0-80.0); Red Blood Cells 4.28 10^6/uL (4.0-5.20); White Blood Cell 22.8 10^3/uL (4.4-10.8)
[2023-02-10] MEDS ORDERED: ALBUTEROL SULF 2.5 MG/0.5ML(0.5%) NEB SOLN NEB PRN (09:00)
[2023-02-10] MEDS ORDERED: NITROGLYCERIN 0.4 MG SL TAB SL PRN (09:00)
[2023-02-10] MEDS ORDERED: VANCOMYCIN PER PHARMACY 0 MG IV SCH (09:00)
[2023-02-10] MEDS ORDERED: MORPHINE SULFATE INJ 2 MG/ml SYRG IV PRN (09:00)
[2023-02-10] MEDS ORDERED: DEXTROSE (50%) 50ML SYRG IV PRN (09:00)
[2023-02-10] MEDS ORDERED: ACETAMINOPHEN 325 MG TAB PO PRN (09:00)
[2023-02-10] MEDS ORDERED: CEFEPIME 1GM/ 50ML 50 ML IV ONE ×2 (09:15→09:30)
[2023-02-10 09:17] LABS: Alanine Aminotransferase 86 U/L (7-40); Albumin 3.9 g/dL (3.2-4.8); Alkaline Phosphatase 88 U/L (46-116); Anion Gap 6 (5-15); Aspartate Aminotransferase 182 U/L (13-40); BUN/Creatinine Ratio 11.2 (10.0-20.0); Blood Urea Nitrogen 18 mg/dL (9-23); Calcium 8.8 mg/dL (8.7-10.4); Carbon Dioxide 25 mmol/L (20-30); Chloride 105 mmol/L (98-107); Glucose 174 mg/dL (74-106); Potassium 4.1 mmol/L (3.5-5.1); Sodium 136 mmol/L (136-145)
[2023-02-10 09:18] LABS: Bilirubin, Total 0.8 mg/dL (0.2-1.0); Total Protein 5.7 g/dL (5.7-8.2)
[2023-02-10 09:59] LABS: Triglycerides 60 mg/dL (< 150)
[2023-02-10 10:00] LABS: LDL Cholesterol 50 mg/dL (< 100)
[2023-02-10] MEDS ORDERED: busPIRone HCL 10 MG TAB PO SCH (10:00)
[2023-02-10 10:01] LABS: Cholesterol 98 mg/dL (< 200); HDL Cholesterol 32 mg/dL (40-59)
[2023-02-10] MEDS: InsuLIN REG 1unit/0.01ml Soln (100units/ml) SC SCH ×3 (11:44→22:12)
[2023-02-10] MEDS: ACCU-CHEK COMFORT CURVE STRIP VI SCH ×3 (11:48→22:07)
[2023-02-10] MEDS: ALBUTEROL SULF 2.5 MG/0.5ML(0.5%) NEB SOLN NEB SCH ×2 (11:53→18:28)
[2023-02-10] MEDS: IPRATROPIUM BROM 0.5 MG/2.5ML INH SOL NEB SCH ×2 (11:53→18:28)
[2023-02-10 13:23] LABS: INR 1.23 (0.9-1.15); Partial Thromboplastin Time 42.8 SEC (24.5-34.5); Prothrombin Time 12.7 sec (9.3-11.8)
[2023-02-10] MEDS: GABAPENTIN 400 MG CAP PO SCH ×2 (14:15→22:11)
[2023-02-10 18:47] LABS: Basophils # (auto) 0.1 10 ^3/uL (0-0.2); Basophils % (auto) 0.5 % (0.0-2.0); Eosinophils # (auto) 0.2 10 ^3/uL (0-0.8); Eosinophils % (auto) 1.2 % (0.0-7.0); Hematocrit 34.6 % (36.0-46.0); Hemoglobin 11.4 g/dL (12.2-16.2); Lymphocytes # (auto) 3.4 10 ^3/uL (0.4-5.4); Lymphocytes % (auto) 20.9 % (10.0-50.0); Mean Corpuscular Hemoglobin 27.1 pg (28.0-32.0); Mean Corpuscular Hgb Conc. 32.9 g/dL (32.0-36.0); Mean Corpuscular Volume 82.5 fL (80.0-100.0); Monocytes # (auto) 1.4 10 ^3/uL (0-1.3); Monocytes % (auto) 8.8 % (0.0-12.0); Neutrophils % (auto) 68.6 % (37.0-80.0); Nucleated Red Blood Cells % 0.1 %; Red Blood Cells 4.19 10^6/uL (4.0-5.20)
[2023-02-10 19:06] LABS: Alanine Aminotransferase 100 U/L (7-40); Albumin 4.1 g/dL (3.2-4.8); Alkaline Phosphatase 83 U/L (46-116); Anion Gap 4 (5-15); Aspartate Aminotransferase 169 U/L (13-40); BUN/Creatinine Ratio 11.8 (10.0-20.0); Bilirubin, Total 0.6 mg/dL (0.2-1.0); Blood Urea Nitrogen 10 mg/dL (9-23); Calcium 8.9 mg/dL (8.7-10.4); Carbon Dioxide 31 mmol/L (20-30); Chloride 103 mmol/L (98-107); Glucose 171 mg/dL (74-106); Potassium 3.1 mmol/L (3.5-5.1); Sodium 138 mmol/L (136-145); Total Protein 5.5 g/dL (5.7-8.2)
[2023-02-10 19:38] LABS: INR 1.27 (0.9-1.15); Partial Thromboplastin Time 48.9 SEC (24.5-34.5); Prothrombin Time 13.1 sec (9.3-11.8)
[2023-02-10] MEDS: VANCOMYCIN 1GM/250ML 250 ML IV SCH (20:12)
[2023-02-10] MEDS: HYDROcodone-ACET 5/325MG TAB PO PRN (20:12)
[2023-02-11] VITALS (17 sets, daily range): BP systolic 87–121; BP diastolic 52–78; PULSE 57–99; RESP 17–22; TEMP 97.9–99.6; O2SAT 90–100
[2023-02-11] MEDS: IPRATROPIUM BROM 0.5 MG/2.5ML INH SOL NEB SCH ×5 (00:12→23:13)
[2023-02-11] MEDS: ALBUTEROL SULF 2.5 MG/0.5ML(0.5%) NEB SOLN NEB SCH ×5 (00:12→23:13)
[2023-02-11] MEDS ORDERED: CYCL-838 PO (00:14)
[2023-02-11] MEDS ORDERED: ALPR0.25 PO (00:14)
[2023-02-11] MEDS ORDERED: PERCOT PO (00:14)
[2023-02-11] MEDS: CEFEPIME 1GM/ 50ML 50 ML IV SCH ×3 (01:09→17:13)
[2023-02-11] MEDS: HEPARIN DRIP/D5W 100UNITS/ML 250 ML IV SCH (02:10)
[2023-02-11] MEDS ORDERED: FURO40TA4 PO (02:12)
[2023-02-11] MEDS ORDERED: METF-370 PO (02:13)
[2023-02-11 02:31] LABS: Basophils # (auto) 0.1 10 ^3/uL (0-0.2); Basophils % (auto) 0.7 % (0.0-2.0); Eosinophils # (auto) 0.3 10 ^3/uL (0-0.8); Hematocrit 33.9 % (36.0-46.0); Lymphocytes # (auto) 3.9 10 ^3/uL (0.4-5.4); Lymphocytes % (auto) 27.6 % (10.0-50.0); Mean Corpuscular Hgb Conc. 32.4 g/dL (32.0-36.0); Mean Corpuscular Volume 83.4 fL (80.0-100.0); Monocytes # (auto) 1.3 10 ^3/uL (0-1.3); Neutrophils # (auto) 8.6 10 ^3/uL (1.6-8.6); Neutrophils % (auto) 60.7 % (37.0-80.0); Nucleated Red Blood Cells % 0.1 %; Red Blood Cells 4.07 10^6/uL (4.0-5.20); White Blood Cell 14.2 10^3/uL (4.4-10.8)
[2023-02-11 02:36] LABS: Alanine Aminotransferase 98 U/L (7-40); Albumin 3.8 g/dL (3.2-4.8); Alkaline Phosphatase 82 U/L (46-116); Anion Gap 3 (5-15); Aspartate Aminotransferase 151 U/L (13-40); Bilirubin, Total 0.5 mg/dL (0.2-1.0); Blood Urea Nitrogen 7 mg/dL (9-23); Calcium 8.7 mg/dL (8.7-10.4); Carbon Dioxide 32 mmol/L (20-30); Chloride 103 mmol/L (98-107); Glucose 187 mg/dL (74-106); Sodium 138 mmol/L (136-145); Total Protein 5.3 g/dL (5.7-8.2)
[2023-02-11 02:46] LABS: INR 1.28 (0.9-1.15); Prothrombin Time 13.2 sec (9.3-11.8); Red Cell Distribution Width 20.2 % (11.8-14.3)
[2023-02-11] MEDS: PARoxetine 20 MG TAB PO SCH (04:49)
[2023-02-11] MEDS: GABAPENTIN 400 MG CAP PO SCH ×3 (04:49→21:34)
[2023-02-11] MEDS: InsuLIN REG 1unit/0.01ml Soln (100units/ml) SC SCH ×4 (05:00→21:35)
[2023-02-11] MEDS: ACCU-CHEK COMFORT CURVE STRIP VI SCH ×4 (05:03→21:34)
[2023-02-11 06:20] LABS: Basophils # (auto) 0.1 10 ^3/uL (0-0.2); Basophils % (auto) 0.7 % (0.0-2.0); Eosinophils # (auto) 0.3 10 ^3/uL (0-0.8); Lymphocytes # (auto) 3.3 10 ^3/uL (0.4-5.4); Lymphocytes % (auto) 28.4 % (10.0-50.0); Mean Corpuscular Hemoglobin 26.6 pg (28.0-32.0); Monocytes # (auto) 1.1 10 ^3/uL (0-1.3); Nucleated Red Blood Cells % 0.1 %; White Blood Cell 11.6 10^3/uL (4.4-10.8)
[2023-02-11 06:23] LABS: Eosinophils % (auto) 2.6 % (0.0-7.0); Hematocrit 35.9 % (36.0-46.0); Hemoglobin 11.5 g/dL (12.2-16.2); Mean Corpuscular Hgb Conc. 32.1 g/dL (32.0-36.0); Mean Corpuscular Volume 82.8 fL (80.0-100.0); Monocytes % (auto) 9.4 % (0.0-12.0); Neutrophils # (auto) 6.8 10 ^3/uL (1.6-8.6); Neutrophils % (auto) 58.9 % (37.0-80.0); Red Blood Cells 4.34 10^6/uL (4.0-5.20)
[2023-02-11 06:36] LABS: Alanine Aminotransferase 100 U/L (7-40); Alkaline Phosphatase 83 U/L (46-116); Anion Gap 4 (5-15); Calcium 8.9 mg/dL (8.7-10.4); Carbon Dioxide 32 mmol/L (20-30); Chloride 104 mmol/L (98-107); Glucose 148 mg/dL (74-106); Potassium 3.2 mmol/L (3.5-5.1); Sodium 140 mmol/L (136-145)
[2023-02-11 06:37] LABS: Albumin 3.9 g/dL (3.2-4.8); Aspartate Aminotransferase 145 U/L (13-40)
[2023-02-11 06:38] LABS: Bilirubin, Total 0.5 mg/dL (0.2-1.0); Total Protein 5.4 g/dL (5.7-8.2)
[2023-02-11 06:54] LABS: BUN/Creatinine Ratio 8.2 (10.0-20.0); Blood Urea Nitrogen < 5 mg/dL (9-23)
[2023-02-11] MEDS ORDERED: LEVOTHYROXINE SODIUM 50 MCG TAB PO SCH (07:00)
[2023-02-11 08:06] LABS: Free Thyroxine Index 2.1 (1.2-4.9); Thyroxine (T4) 6.9 ug/dL (4.5-12.0)
[2023-02-11] MEDS ORDERED: POTASSIUM EFFERVESENT TAB 25 MEQ PO ONE (08:15)
[2023-02-11 09:15] LABS: INR 1.21 (0.9-1.15); Prothrombin Time 12.5 sec (9.3-11.8)
[2023-02-11] MEDS: HYDROcodone-ACET 5/325MG TAB PO PRN ×2 (12:13→20:35)
[2023-02-11] MEDS ORDERED: ANGIOMAX 250 MG VIAL IV ONE (12:28)
[2023-02-11] MEDS ORDERED: VERAPAMIL 2.5MG/ML INJ 2ML VIAL IV ONE (12:29)
[2023-02-11] MEDS ORDERED: HEPARIN SODIUM (PORCINE) 5000 UNITS/ML 1ML VIAL ONE (12:29)
[2023-02-11] MEDS ORDERED: fentaNYL CITRATE 100 MCG/2 ML VL ONE (12:29)
[2023-02-11] MEDS ORDERED: IOHEXOL 350 MG/ML 100ML IJ ONE (12:29)
[2023-02-11] MEDS ORDERED: LIDOCAINE 2%HCL (LOCAL ANESTH.) INJ 20ML MDV ONE (12:29)
[2023-02-11] MEDS ORDERED: SODIUM CHL 0.9% 0 ML ONE (12:29)
[2023-02-11] MEDS ORDERED: MIDAZOLAM HCL 2MG/2ML 2ml VIAL (1mg/ml) ONE (12:29)
[2023-02-11] MEDS ORDERED: diphenhdrAMINE HCL 50 MG/1 ML VL ONE (13:04)
[2023-02-11] MEDS ORDERED: SODIUM CHLORIDE 0.9% 1,000 ML IV ONE (14:15)
[2023-02-11] MEDS: VANCOMYCIN 1GM/250ML 250 ML IV SCH (14:36)
[2023-02-11 18:13] LABS: Basophils # (auto) 0.1 10 ^3/uL (0-0.2); Basophils % (auto) 0.9 % (0.0-2.0); Eosinophils # (auto) 0.2 10 ^3/uL (0-0.8); Hematocrit 35.6 % (36.0-46.0); Hemoglobin 11.5 g/dL (12.2-16.2); Lymphocytes # (auto) 1.5 10 ^3/uL (0.4-5.4); Lymphocytes % (auto) 17.3 % (10.0-50.0); Mean Corpuscular Hgb Conc. 32.4 g/dL (32.0-36.0); Mean Corpuscular Volume 83.1 fL (80.0-100.0); Monocytes % (auto) 10.9 % (0.0-12.0); Neutrophils % (auto) 68.9 % (37.0-80.0); Red Blood Cells 4.28 10^6/uL (4.0-5.20); White Blood Cell 8.7 10^3/uL (4.4-10.8)
[2023-02-11 18:30] LABS: Alanine Aminotransferase 93 U/L (7-40); Albumin 3.9 g/dL (3.2-4.8); Alkaline Phosphatase 83 U/L (46-116); Anion Gap 2 (5-15); Aspartate Aminotransferase 120 U/L (13-40); Bilirubin, Total 0.5 mg/dL (0.2-1.0); Calcium 8.7 mg/dL (8.7-10.4); Carbon Dioxide 33 mmol/L (20-30); Chloride 103 mmol/L (98-107); Glucose 240 mg/dL (74-106); Potassium 3.9 mmol/L (3.5-5.1); Sodium 138 mmol/L (136-145)
[2023-02-11 18:31] LABS: Total Protein 5.4 g/dL (5.7-8.2)
[2023-02-11 18:49] LABS: Red Cell Distribution Width 20.7 % (11.8-14.3)
[2023-02-11 18:54] LABS: BUN/Creatinine Ratio 7.7 (10.0-20.0); Blood Urea Nitrogen < 5 mg/dL (9-23)
[2023-02-11] MEDS: HEPARIN SODIUM (PORCINE) 5000 UNITS/ML 1ML VIAL SC SCH (21:35)
[2023-02-12] VITALS (16 sets, daily range): BP systolic 90–124; BP diastolic 58–95; PULSE 77–104; RESP 16–20; TEMP 98–98.6; O2SAT 94–98
[2023-02-12] MEDS: CEFEPIME 1GM/ 50ML 50 ML IV SCH ×3 (02:42→16:55)
[2023-02-12] MEDS: HYDROcodone-ACET 5/325MG TAB PO PRN ×3 (02:45→21:43)
[2023-02-12] MEDS: PARoxetine 20 MG TAB PO SCH (06:23)
[2023-02-12] MEDS: ACCU-CHEK COMFORT CURVE STRIP VI SCH ×4 (06:23→21:44)
[2023-02-12] MEDS: GABAPENTIN 400 MG CAP PO SCH ×3 (06:23→21:43)
[2023-02-12] MEDS: InsuLIN REG 1unit/0.01ml Soln (100units/ml) SC SCH ×4 (06:28→21:55)
[2023-02-12] MEDS: ALBUTEROL SULF 2.5 MG/0.5ML(0.5%) NEB SOLN NEB SCH ×3 (07:25→19:06)
[2023-02-12] MEDS: IPRATROPIUM BROM 0.5 MG/2.5ML INH SOL NEB SCH ×3 (07:26→19:06)
[2023-02-12] MEDS: VANCOMYCIN 1GM/250ML 250 ML IV SCH ×2 (07:59→20:06)
[2023-02-12] MEDS: HEPARIN SODIUM (PORCINE) 5000 UNITS/ML 1ML VIAL SC SCH ×2 (09:13→21:53)
[2023-02-12 12:40] LABS: Chloride 105 mmol/L (98-107); Potassium 3.7 mmol/L (3.5-5.1); Sodium 140 mmol/L (136-145)
[2023-02-12 12:41] LABS: Anion Gap 6 (5-15); Carbon Dioxide 29 mmol/L (20-30)
[2023-02-12 12:42] LABS: Calcium 8.8 mg/dL (8.7-10.4)
[2023-02-12 12:46] LABS: Glucose 152 mg/dL (74-106)
[2023-02-12 12:56] LABS: BUN/Creatinine Ratio 9.3 (10.0-20.0); Blood Urea Nitrogen < 5 mg/dL (9-23)
[2023-02-13] VITALS (17 sets, daily range): BP systolic 107–123; BP diastolic 56–65; PULSE 69–92; RESP 16–20; TEMP 97.9–99; O2SAT 92–99
[2023-02-13] MEDS: ALBUTEROL SULF 2.5 MG/0.5ML(0.5%) NEB SOLN NEB SCH ×4 (00:19→18:56)
[2023-02-13] MEDS: IPRATROPIUM BROM 0.5 MG/2.5ML INH SOL NEB SCH ×4 (00:19→18:56)
[2023-02-13] MEDS: CEFEPIME 1GM/ 50ML 50 ML IV SCH ×3 (02:15→17:42)
[2023-02-13] MEDS: GABAPENTIN 400 MG CAP PO SCH (06:42)
[2023-02-13] MEDS: PARoxetine 20 MG TAB PO SCH (06:42)
[2023-02-13] MEDS: HYDROcodone-ACET 5/325MG TAB PO PRN ×3 (06:42→22:19)
[2023-02-13] MEDS: ACCU-CHEK COMFORT CURVE STRIP VI SCH ×4 (06:43→22:19)
[2023-02-13] MEDS: InsuLIN REG 1unit/0.01ml Soln (100units/ml) SC SCH ×4 (06:46→22:25)
[2023-02-13] MEDS: VANCOMYCIN 1GM/250ML 250 ML IV SCH ×2 (08:38→21:20)
[2023-02-13] MEDS: HEPARIN SODIUM (PORCINE) 5000 UNITS/ML 1ML VIAL SC SCH ×2 (08:42→22:30)
[2023-02-13] MEDS: GABAPENTIN 300 MG CAP PO SCH ×2 (15:00→22:19)
[2023-02-13] MEDS ORDERED: LORazepam 0.5 MG TAB PO PRN (15:30)
[2023-02-14] VITALS (9 sets, daily range): BP systolic 111–125; BP diastolic 61–69; PULSE 82–100; RESP 18–20; TEMP 97.6–99.1; O2SAT 91–96
[2023-02-14] MEDS: CEFEPIME 1GM/ 50ML 50 ML IV SCH ×2 (02:19→10:38)
[2023-02-14] MEDS: HYDROcodone-ACET 5/325MG TAB PO PRN ×3 (04:53→18:22)
[2023-02-14] MEDS: IPRATROPIUM BROM 0.5 MG/2.5ML INH SOL NEB SCH ×4 (06:00→18:00)
[2023-02-14] MEDS: ALBUTEROL SULF 2.5 MG/0.5ML(0.5%) NEB SOLN NEB SCH ×4 (06:00→18:00)
[2023-02-14] MEDS: PARoxetine 20 MG TAB PO SCH (06:29)
[2023-02-14] MEDS: GABAPENTIN 300 MG CAP PO SCH ×3 (06:29→22:17)
[2023-02-14] MEDS: ACCU-CHEK COMFORT CURVE STRIP VI SCH ×4 (06:30→22:19)
[2023-02-14] MEDS: InsuLIN REG 1unit/0.01ml Soln (100units/ml) SC SCH ×4 (06:34→22:19)
[2023-02-14] MEDS: VANCOMYCIN 1GM/250ML 250 ML IV SCH ×2 (08:48→20:37)
[2023-02-14] MEDS: HEPARIN SODIUM (PORCINE) 5000 UNITS/ML 1ML VIAL SC SCH ×2 (10:43→22:18)
[2023-02-14] MEDS: MEROPENEM 1GM IVPB 100 ML IV SCH (22:17)
[2023-02-15] VITALS (16 sets, daily range): BP systolic 102–127; BP diastolic 53–73; PULSE 73–99; RESP 14–20; TEMP 97.7–98.7; O2SAT 88–99
[2023-02-15] MEDS: IPRATROPIUM BROM 0.5 MG/2.5ML INH SOL NEB SCH ×5 (00:21→23:43)
[2023-02-15] MEDS: ALBUTEROL SULF 2.5 MG/0.5ML(0.5%) NEB SOLN NEB SCH ×5 (00:21→23:44)
[2023-02-15] MEDS: HYDROcodone-ACET 5/325MG TAB PO PRN ×4 (00:31→18:35)
[2023-02-15] MEDS: MEROPENEM 1GM IVPB 100 ML IV SCH ×3 (06:17→14:26)
[2023-02-15] MEDS: PARoxetine 20 MG TAB PO SCH (06:17)
[2023-02-15] MEDS: GABAPENTIN 300 MG CAP PO SCH ×3 (06:17→20:58)
[2023-02-15] MEDS: InsuLIN REG 1unit/0.01ml Soln (100units/ml) SC SCH ×4 (06:18→21:11)
[2023-02-15] MEDS: ACCU-CHEK COMFORT CURVE STRIP VI SCH ×4 (06:19→21:00)
[2023-02-15] MEDS: VANCOMYCIN 1GM/250ML 250 ML IV SCH ×2 (09:24→20:53)
[2023-02-15] MEDS: HEPARIN SODIUM (PORCINE) 5000 UNITS/ML 1ML VIAL SC SCH ×2 (09:36→20:59)
[2023-02-15] MEDS ORDERED: ACETAMINOPHEN 325 MG TAB PO PRN (22:45)
[2023-02-15] MEDS ORDERED: ALBUTEROL SULF 2.5 MG/0.5ML(0.5%) NEB SOLN NEB PRN (22:45)
[2023-02-16] VITALS (14 sets, daily range): BP systolic 129–135; BP diastolic 47–77; PULSE 85–103; RESP 14–20; TEMP 97.7–98.4; O2SAT 93–99
[2023-02-16] MEDS: HYDROcodone-ACET 5/325MG TAB PO PRN ×2 (00:57→06:41)
[2023-02-16] MEDS: GABAPENTIN 300 MG CAP PO SCH ×3 (05:17→20:56)
[2023-02-16] MEDS: MEROPENEM 1GM IVPB 100 ML IV SCH ×3 (05:17→22:06)
[2023-02-16] MEDS: PARoxetine 20 MG TAB PO SCH (06:09)
[2023-02-16] MEDS: ACCU-CHEK COMFORT CURVE STRIP VI SCH ×4 (06:10→20:57)
[2023-02-16] MEDS: InsuLIN REG 1unit/0.01ml Soln (100units/ml) SC SCH ×4 (06:11→21:11)
[2023-02-16] MEDS: IPRATROPIUM BROM 0.5 MG/2.5ML INH SOL NEB SCH ×4 (07:05→23:57)
[2023-02-16] MEDS: ALBUTEROL SULF 2.5 MG/0.5ML(0.5%) NEB SOLN NEB SCH ×4 (07:05→23:57)
[2023-02-16 08:29] LABS: Eosinophils # (auto) 0.7 10 ^3/uL (0-0.8); Hemoglobin 12.5 g/dL (12.2-16.2); Monocytes # (auto) 1.1 10 ^3/uL (0-1.3)
[2023-02-16 08:30] LABS: Basophils # (auto) 0.2 10 ^3/uL (0-0.2); Basophils % (auto) 2.1 % (0.0-2.0); Eosinophils % (auto) 7.8 % (0.0-7.0); Hematocrit 38.1 % (36.0-46.0); Lymphocytes # (auto) 2.5 10 ^3/uL (0.4-5.4); Lymphocytes % (auto) 28.9 % (10.0-50.0); Mean Corpuscular Hgb Conc. 32.8 g/dL (32.0-36.0); Mean Corpuscular Volume 82.3 fL (80.0-100.0); Neutrophils # (auto) 4.2 10 ^3/uL (1.6-8.6); Neutrophils % (auto) 48.2 % (37.0-80.0); Nucleated Red Blood Cells % 0.1 %; Red Blood Cells 4.63 10^6/uL (4.0-5.20); Red Cell Distribution Width 19.8 % (11.8-14.3); White Blood Cell 8.8 10^3/uL (4.4-10.8)
[2023-02-16 09:00] LABS: Alanine Aminotransferase 80 U/L (7-40); Albumin 4.2 g/dL (3.2-4.8); Alkaline Phosphatase 123 U/L (46-116); Aspartate Aminotransferase 72 U/L (13-40); BUN/Creatinine Ratio 13.6 (10.0-20.0); Bilirubin, Total 0.7 mg/dL (0.2-1.0); Blood Urea Nitrogen 8 mg/dL (9-23); Calcium 9.6 mg/dL (8.5-10.1); Carbon Dioxide 27 mmol/L (20-30); Glucose 183 mg/dL (74-106); Total Protein 6.2 g/dL (5.7-8.2)
[2023-02-16] MEDS: VANCOMYCIN 1GM/250ML 250 ML IV SCH ×2 (09:08→20:27)
[2023-02-16] MEDS: HEPARIN SODIUM (PORCINE) 5000 UNITS/ML 1ML VIAL SC SCH ×2 (09:22→20:59)
[2023-02-16 09:57] LABS: Anion Gap 7 (5-15); Chloride 104 mmol/L (98-107); Potassium 4.3 mmol/L (3.5-5.1); Sodium 138 mmol/L (136-145)
[2023-02-16] MEDS ORDERED: ARTIFICIAL TEARS 15ml EACHEYE PRN (13:00)
[2023-02-16] MEDS: HYDROcodone-ACET 10/325MG TAB PO PRN ×2 (13:33→20:56)
[2023-02-17] VITALS (14 sets, daily range): BP systolic 100–115; BP diastolic 51–68; PULSE 75–97; RESP 16–22; TEMP 97.6–99.5; O2SAT 91–100
[2023-02-17] MEDS: HYDROcodone-ACET 10/325MG TAB PO PRN ×3 (03:19→19:56)
[2023-02-17] MEDS: PARoxetine 20 MG TAB PO SCH (05:50)
[2023-02-17] MEDS: GABAPENTIN 300 MG CAP PO SCH ×3 (05:50→21:23)
[2023-02-17] MEDS: ACCU-CHEK COMFORT CURVE STRIP VI SCH ×4 (05:51→22:07)
[2023-02-17] MEDS: MEROPENEM 1GM IVPB 100 ML IV SCH ×3 (05:51→21:24)
[2023-02-17] MEDS: InsuLIN REG 1unit/0.01ml Soln (100units/ml) SC SCH ×4 (06:06→22:09)
[2023-02-17] MEDS: IPRATROPIUM BROM 0.5 MG/2.5ML INH SOL NEB SCH ×3 (06:54→18:51)
[2023-02-17] MEDS: ALBUTEROL SULF 2.5 MG/0.5ML(0.5%) NEB SOLN NEB SCH ×3 (06:54→18:51)
[2023-02-17] MEDS: VANCOMYCIN 1GM/250ML 250 ML IV SCH ×2 (09:06→19:57)
[2023-02-17] MEDS: HEPARIN SODIUM (PORCINE) 5000 UNITS/ML 1ML VIAL SC SCH ×2 (09:18→21:24)
[2023-02-17] MEDS ORDERED: ALPRAZolam 0.5 MG TAB PO PRN (11:45)
[2023-02-18] VITALS (9 sets, daily range): BP systolic 108–130; BP diastolic 53–71; PULSE 82–98; RESP 17–20; TEMP 36.9; O2SAT 90–99
[2023-02-18] MEDS: ALBUTEROL SULF 2.5 MG/0.5ML(0.5%) NEB SOLN NEB SCH ×4 (00:36→11:59)
[2023-02-18] MEDS: IPRATROPIUM BROM 0.5 MG/2.5ML INH SOL NEB SCH ×4 (00:36→11:59)
[2023-02-18] MEDS: PARoxetine 20 MG TAB PO SCH (05:54)
[2023-02-18] MEDS: MEROPENEM 1GM IVPB 100 ML IV SCH ×2 (05:54→15:03)
[2023-02-18] MEDS: GABAPENTIN 300 MG CAP PO SCH ×2 (05:54→15:04)
[2023-02-18] MEDS: ACCU-CHEK COMFORT CURVE STRIP VI SCH ×3 (06:16→16:57)
[2023-02-18] MEDS: InsuLIN REG 1unit/0.01ml Soln (100units/ml) SC SCH ×3 (06:17→16:57)
[2023-02-18] MEDS: HYDROcodone-ACET 10/325MG TAB PO PRN (06:43)
[2023-02-18] MEDS: VANCOMYCIN 1GM/250ML 250 ML IV SCH (09:13)
[2023-02-18] MEDS: HEPARIN SODIUM (PORCINE) 5000 UNITS/ML 1ML VIAL SC SCH (09:19)
[2023-02-18] MEDS ORDERED: LEVO500T91 PO (11:27)
[2023-02-18] MEDS: HYDROcodone-ACET 5/325MG TAB PO PRN (13:02)
== END 2023-02-18 17:00 | disposition home or self-care (01) | DRG 871 ==
LOC: ER 22:12 → EDBD 22:12 → TELE 02-10 08:57 → TELE-WESTW 02-10 23:37 → WEST WING 02-14 11:43 → TELE-WESTW 02-14 21:04
PROVIDERS: ADMIT Nurse Practitioner Family; ATTEND Internal Medicine
PROC: 4A023N7 Measurement of Cardiac Sampling and Pressure, Left Heart, Percutaneous Approach (ICD-10-PCS; principal; 2023-02-11)
PROC: B211YZZ Fluoroscopy of Multiple Coronary Arteries using Other Contrast (ICD-10-PCS; 2023-02-11)
DX: A41.9 Sepsis, unspecified organism (principal); G92.9 Unspecified toxic encephalopathy; R65.21 Severe sepsis with septic shock; N17.0 Acute kidney failure with tubular necrosis; J96.00 Acute respiratory failure, unspecified whether with hypoxia or hypercapnia; I50.41 Acute combined systolic (congestive) and diastolic (congestive) heart failure; J15.0 Pneumonia due to Klebsiella pneumoniae; I21.A1 Myocardial infarction type 2; I13.0 Hypertensive heart and chronic kidney disease with heart failure and stage 1 through stage 4 chronic kidney disease, or unspecified chronic kidney disease; I42.8 Other cardiomyopathies; N18.4 Chronic kidney disease, stage 4 (severe); Z16.12 Extended spectrum beta lactamase (ESBL) resistance; E11.22 Type 2 diabetes mellitus with diabetic chronic kidney disease; J44.9 Chronic obstructive pulmonary disease, unspecified; E03.9 Hypothyroidism, unspecified; E11.65 Type 2 diabetes mellitus with hyperglycemia; E78.5 Hyperlipidemia, unspecified; T50.901A Poisoning by unspecified drugs, medicaments and biological substances, accidental (unintentional), initial encounter; E86.0 Dehydration; E05.90 Thyrotoxicosis, unspecified without thyrotoxic crisis or storm; R74.01 Elevation of levels of liver transaminase levels; Z99.81 Dependence on supplemental oxygen; Z88.0 Allergy status to penicillin; Z87.891 Personal history of nicotine dependence
CPT/HCPCS: 36415; 36600; 70450; 70551; 71045; 74176; 80048; 80053; 80061; 80202; 80307; 80329; 81001; 82565; 82805; 82962; 83036; 83605; 83735; 83880; 84439; 84443; 84484; 85007; 85025; 85027; 85610; 85730; 87040; 87070; 87077; 87186; 87205; 93005; 93306; 93458; 94640; 97110; 97116; 97163; 97530; 99152; 99153; 99291; G0378; J1815; J2185; J2250; J2543; P9047

== ENCOUNTER 2023-12-11 11:36 | Inpatient (IN) | payer MEDICARE ==
[~2023-12-11] VITALS: Ht 162.6 cm; Wt 83.7 kg
[2023-12-11] VITALS (7 sets, daily range): BP systolic 89–107; BP diastolic 50–62; PULSE 95–115; RESP 14–18; TEMP 100.8; O2SAT 97–99
[~2023-12-11 11:36] MED LIST changes: +ALPR0.25 PO; +CYCL-837 PO; +CYCL-838 PO; +FURO20TA3 PO; +FURO40TA4 PO; +LEVO112T4 PO; +LEVO500T91 PO; +METF-370 PO; +OXYC325T14 PO; +PERCOT PO
[2023-12-11] MEDS: ETOMIDATE (2MG/ML) 20ML VIAL IV ONE (11:41)
[2023-12-11] MEDS: MIDAZOLAM HCL 5 MG/ML-1ML VIAL IV ONE (11:42)
[2023-12-11] MEDS: ROCURONIUM 10MG/ML 10ML VIAL IV ONE (11:46)
[2023-12-11] MEDS: MIDAZOLAM DRIP 50 mg/50mL 50 ML IV ONE (11:56)
[2023-12-11] MEDS: MIDAZOLAM DRIP 50 mg/50mL 50 ML IV SCH (12:00)
[2023-12-11] MEDS: NOREPINEPHRINE 8 MG/250ML KIT 250 ML IV SCH (12:02)
[2023-12-11 12:23] LABS: Urine Bacteria None Seen /hpf (None Seen)
[2023-12-11] MEDS: NOREPINEPHRINE 8 MG/250ML KIT 250 ML IV ONE (12:27)
[2023-12-11] MEDS: FUROSEMIDE 20 MG/2 ML VIAL IV ONE (12:28)
[2023-12-11] MEDS: ACETAMINOPHEN 650 MG RECT SUPP PR ONE (12:30)
[2023-12-11 12:31] LABS: Urine Blood Negative /uL (Negative); Urine Clarity Clear (Clear); Urine Color Yellow (Yellow); Urine Hyaline Cast FEW /lpf (0 - 2); Urine Protein, UAD TRACE (Negative); Urine Specific Gravity 1.018 (1.001-1.035); Urine Urobilinogen Normal (Negative); Urine WBC 2 /hpf (0 - 5)
[2023-12-11] MEDS: CLINDAMYCIN 600MG IV 50 ML IV ONE (12:36)
[2023-12-11] MEDS: SODIUM CHLORIDE 0.9% 1,000 ML IV ONE ×2 (12:36→14:13)
[2023-12-11] MEDS: levoFLOXacin 750MG 150 ML IV ONE (13:21)
[2023-12-11 13:43] LABS: Hematocrit 39.1 % (36.0-46.0); Hemoglobin 12.5 g/dL (12.2-16.2); Mean Corpuscular Hemoglobin 26.8 pg (28.0-32.0); Mean Corpuscular Hgb Conc. 31.9 g/dL (32.0-36.0); Red Blood Cells 4.65 10^6/uL (4.0-5.20); Red Cell Distribution Width 19.3 % (11.8-14.3)
[2023-12-11 13:48] LABS: White Blood Cell 30.2 10^3/uL (4.4-10.8)
[2023-12-11 13:49] LABS: Band Neutrophils % (manual) 0; Basophils % (manual) 0 (0.0-2.0); Blast Cells 0; Metamyelocytes % 0; Myelocytes % 0; Promyelocytes % 0; Reactive Lymphocytes 0
[2023-12-11 13:52] LABS: Base Excess -10.5 mmol/L (-2.0-2.0)
[2023-12-11 14:00] LABS: Albumin 3.5 g/dL (3.2-4.8); Alkaline Phosphatase 106 U/L (46-116); Anion Gap 12 (5-15); BUN/Creatinine Ratio 14.9 (10.0-20.0); Blood Urea Nitrogen 45 mg/dL (9-23); Calcium 8.6 mg/dL (8.7-10.4); Carbon Dioxide 22 mmol/L (20-30); Chloride 105 mmol/L (98-107); Glucose 161 mg/dL (74-106); Potassium 5.2 mmol/L (3.5-5.1); Sodium 139 mmol/L (136-145)
[2023-12-11 14:01] LABS: Bilirubin, Total 0.9 mg/dL (0.2-1.0)
[2023-12-11 14:04] LABS: Lactic Acid w/Reflex 3.9 mmol/L (0.4-2.0)
[2023-12-11 14:12] LABS: Aspartate Aminotransferase 3500 U/L (13-40)
[2023-12-11 14:13] LABS: Alanine Aminotransferase 2607 U/L (7-40)
[2023-12-11 14:38] LABS: Eosinophils % (manual) 1 (0-7); Lymphocytes % (manual) 4 (10.0-50.0); Monocytes % (manual) 13 (0-12); Platelet Estimate Adequate
[2023-12-11] MEDS ORDERED: VANCOMYCIN PER PHARMACY 0 MG IV SCH (15:30)
[2023-12-11] MEDS ORDERED: ONDANSETRON HCL 4 MG/2 ML VIAL IV PRN (15:30)
[2023-12-11] MEDS: SODIUM CHLORIDE 0.9% 1,000 ML IV SCH (16:03)
[2023-12-11 16:11] LABS: Amphetamine Screen, Urine Neg (NEGATIVE); Barbiturate Scree,Urine Neg (NEGATIVE); Benzodiazephine Screen, Urine Pos (NEGATIVE)
[2023-12-11 16:12] LABS: Cannabinoid Screen, Urine Neg (NEGATIVE); Cocaine Screen, Urine Neg (NEGATIVE); Opiate Scree,Urine Neg (NEGATIVE); Phencyclidine Screen, Urine Neg (NEGATIVE)
[2023-12-11] MEDS: VANCOMYCIN 1GM/200ML 200 ML IV ONE (16:40)
[2023-12-11] MEDS: CEFEPIME 1GM/ 50ML 50 ML IV SCH (18:08)
[2023-12-11 19:35] LABS: Base Excess -9.3 mmol/L (-2.0-2.0)
[2023-12-11] MEDS ORDERED: ACETAMINOPHEN 650 MG RECT SUPP PR PRN (20:45)
[2023-12-11] MEDS: IBUPROFEN 400 MG TAB PO ONE (21:30)
[2023-12-11] MEDS ORDERED: IBUPROFEN 400 MG TAB PO PRN (21:30)
[2023-12-11] MEDS ORDERED: DEXTROSE (50%) 50ML SYRG IV PRN (21:30)
[2023-12-11] MEDS: ALBUTEROL SULF 2.5 MG/0.5ML(0.5%) NEB SOLN NEB ONE (22:31)
[2023-12-11] MEDS: IPRATROPIUM BROM 0.5 MG/2.5ML INH SOL NEB ONE (22:32)
[2023-12-11 22:40] LABS: Amphetamine Screen, Urine Neg (NEGATIVE); Barbiturate Scree,Urine Neg (NEGATIVE); Benzodiazephine Screen, Urine Pos (NEGATIVE); Cannabinoid Screen, Urine Neg (NEGATIVE); Cocaine Screen, Urine Neg (NEGATIVE); Opiate Scree,Urine Neg (NEGATIVE); Phencyclidine Screen, Urine Neg (NEGATIVE)
[2023-12-11 22:57] LABS: Albumin 3.7 g/dL (3.2-4.8); Alkaline Phosphatase 109 U/L (46-116); Anion Gap 9 (5-15); BUN/Creatinine Ratio 16.6 (10.0-20.0); Blood Urea Nitrogen 41 mg/dL (9-23); Calcium 8.1 mg/dL (8.7-10.4); Carbon Dioxide 21 mmol/L (20-30); Chloride 107 mmol/L (98-107); Glucose 232 mg/dL (74-106); Sodium 137 mmol/L (136-145)
[2023-12-11 22:58] LABS: Total Protein 5.5 g/dL (5.7-8.2)
[2023-12-11] MEDS: SODIUM BICARB 8.4% 50Meq/50ml SYR Vial IV ONE (23:07)
[2023-12-11] MEDS: HYDROCORTISONE SOD SUCC 100 MG/2ML INJ VIAL IV ONE (23:07)
[2023-12-11 23:09] LABS: Aspartate Aminotransferase 5139 U/L (13-40)
[2023-12-11 23:12] LABS: Alanine Aminotransferase 3443 U/L (7-40); Potassium 5.8 mmol/L (3.5-5.1)
[2023-12-12] VITALS (24 sets, daily range): BP systolic 99–131; BP diastolic 58–74; PULSE 85–164; RESP 18–29; TEMP 98.1; O2SAT 95–99
[2023-12-12] MEDS: ACCU-CHEK COMFORT CURVE STRIP VI SCH
[2023-12-12] MEDS: InsuLIN REG 1unit/0.01ml Soln (100units/ml) SC SCH
[2023-12-12] MEDS: IBUPROFEN 100MG/5ML ORAL SUSP 100 MG/5 ML UD GT PRN (00:09)
[2023-12-12] MEDS: InsuLIN REG 1unit/0.01ml Soln (100units/ml) IV ONE (00:10)
[2023-12-12] MEDS: SODIUM ZIRCONIUM CYCL 10 GM PAK PO ONE (00:10)
[2023-12-12] MEDS: DEXTROSE (50%) 50ML SYRG IV ONE (00:10)
[2023-12-12] MEDS: FUROSEMIDE 20 MG/2 ML VIAL IV ONE (00:10)
[2023-12-12] MEDS: CALCIUM CHL 100MG/ML 500 MG in D5W 5% 100 ML IV ONE ×2 (00:14→09:45)
[2023-12-12] MEDS: ALBUTEROL SULF 2.5 MG/0.5ML(0.5%) NEB SOLN NEB SCH (02:18)
[2023-12-12] MEDS: IPRATROPIUM BROM 0.5 MG/2.5ML INH SOL NEB SCH (02:18)
[2023-12-12 04:18] LABS: Rapid Influenza A Negative (Negative); Rapid Influenza B Negative (Negative)
[2023-12-12 04:21] LABS: Basophils # (auto) 0.1 10 ^3/uL (0-0.2); Basophils % (auto) 0.6 % (0.0-2.0); Eosinophils # (auto) 0 10 ^3/uL (0-0.8); Hematocrit 41.4 % (36.0-46.0); Hemoglobin 13.6 g/dL (12.2-16.2); Lymphocytes # (auto) 0.4 10 ^3/uL (0.4-5.4); Lymphocytes % (auto) 1.7 % (10.0-50.0); Mean Corpuscular Hemoglobin 27.2 pg (28.0-32.0); Mean Corpuscular Hgb Conc. 32.8 g/dL (32.0-36.0); Mean Corpuscular Volume 82.8 fL (80.0-100.0); Monocytes # (auto) 1.1 10 ^3/uL (0-1.3); Monocytes % (auto) 4.9 % (0.0-12.0); Neutrophils # (auto) 21.8 10 ^3/uL (1.6-8.6); Neutrophils % (auto) 92.8 % (37.0-80.0); Nucleated Red Blood Cells % 0.1 %; Red Cell Distribution Width 19.7 % (11.8-14.3); White Blood Cell 23.5 10^3/uL (4.4-10.8)
[2023-12-12 04:23] LABS: COVID19 ANTIGEN SOFIA FIA NEGATIVE (NEGATIVE)
[2023-12-12] MEDS: HYDROCORTISONE SOD SUCC 100 MG/2ML INJ VIAL IV SCH (05:40)
[2023-12-12 06:36] LABS: Albumin 3.7 g/dL (3.2-4.8); Alkaline Phosphatase 116 U/L (46-116); Anion Gap 8 (5-15); BUN/Creatinine Ratio 19.5 (10.0-20.0); Calcium 8.3 mg/dL (8.7-10.4); Carbon Dioxide 25 mmol/L (20-30); Chloride 107 mmol/L (98-107); Glucose 337 mg/dL (74-106); Potassium 4.1 mmol/L (3.5-5.1); Sodium 140 mmol/L (136-145)
[2023-12-12 06:37] LABS: Bilirubin, Total 1.3 mg/dL (0.2-1.0); Total Protein 5.7 g/dL (5.7-8.2)
[2023-12-12 06:41] LABS: Base Excess -3.5 mmol/L (-2.0-2.0)
[2023-12-12 06:48] LABS: Aspartate Aminotransferase 4675 U/L (13-40)
[2023-12-12 06:57] LABS: Alanine Aminotransferase 3588 U/L (7-40); Blood Urea Nitrogen 29 mg/dL (9-23)
[2023-12-12 10:19] LABS: Base Excess 1.3 mmol/L (-2.0-2.0)
[2023-12-12] MEDS: VANCOMYCIN 1GM/200ML 200 ML IV ONE (10:38)
[2023-12-12] MEDS: ENOXAPARIN SOD 40 MG/0.4 ML SYRINGE SC SCH (10:39)
[2023-12-12] MEDS: PHENYLEPHRINE IV 250 ML IV SCH (13:42)
[2023-12-12] MEDS: AMIODARONE BOLUS KIT 100 ML IV ONE (17:06)
[2023-12-12] MEDS: VASOPRESSIN 20 UNITS in SODIUM CHL 0.9% 99 ML IV SCH (17:16)
[2023-12-12] MEDS: AMIODARONE 450mg/250ml AE 250 ML IV SCH (17:25)
[2023-12-12] MEDS: LORAZEPAM 2 MG/ML IV ONE (19:54)
[2023-12-12] MEDS: LORazepam MDV 2MG/ML 50 MG in SODIUM CHL 0.9% 25 ML IV SCH (20:00)
[2023-12-12] MEDS: LORazepam 2MG/ML-1ML VIAL ONE (20:24)
[2023-12-12] MEDS: levETIRAcetam 500 mg/100ml 100 ML IV SCH (21:56)
[2023-12-12] MEDS ORDERED: MEROPENEM 500MG IVPB 50 ML IV SCH (22:00)
[2023-12-12] MEDS: MEROPENEM 1GM IVPB 50 ML IV SCH (22:07)
[2023-12-13] VITALS (106 sets, daily range): BP systolic 88–130; BP diastolic 50–75; PULSE 76–95; RESP 17–30; TEMP 97.9–99; O2SAT 92–100
[2023-12-13] MEDS: AMIODARONE 450mg/250ml AE 250 ML IV SCH (01:55)
[2023-12-13 04:10] LABS: Basophils # (auto) 0 10 ^3/uL (0-0.2); Basophils % (auto) 0.1 % (0.0-2.0); Eosinophils # (auto) 0 10 ^3/uL (0-0.8); Hematocrit 35.6 % (36.0-46.0); Hemoglobin 11.8 g/dL (12.2-16.2); Lymphocytes # (auto) 0.7 10 ^3/uL (0.4-5.4); Lymphocytes % (auto) 5.4 % (10.0-50.0); Mean Corpuscular Hgb Conc. 33.1 g/dL (32.0-36.0); Mean Corpuscular Volume 81.7 fL (80.0-100.0); Monocytes # (auto) 0.5 10 ^3/uL (0-1.3); Monocytes % (auto) 3.8 % (0.0-12.0); Neutrophils # (auto) 12.4 10 ^3/uL (1.6-8.6); Neutrophils % (auto) 90.7 % (37.0-80.0); Red Blood Cells 4.35 10^6/uL (4.0-5.20); Red Cell Distribution Width 19.3 % (11.8-14.3); White Blood Cell 13.7 10^3/uL (4.4-10.8)
[2023-12-13 04:35] LABS: Alkaline Phosphatase 88 U/L (46-116); Anion Gap 8 (5-15); BUN/Creatinine Ratio 30.5 (10.0-20.0); Blood Urea Nitrogen 18 mg/dL (9-23); Calcium 8.3 mg/dL (8.7-10.4); Carbon Dioxide 26 mmol/L (20-30); Chloride 110 mmol/L (98-107); Glucose 332 mg/dL (74-106); Potassium 2.9 mmol/L (3.5-5.1); Sodium 144 mmol/L (136-145)
[2023-12-13 04:37] LABS: Bilirubin, Total 1.1 mg/dL (0.2-1.0); Total Protein 4.7 g/dL (5.7-8.2)
[2023-12-13 04:46] LABS: Alanine Aminotransferase 2763 U/L (7-40)
[2023-12-13 04:48] LABS: Aspartate Aminotransferase 2171 U/L (13-40)
[2023-12-13] MEDS: POTASSIUM CHL 20MEQ/100ML 100 ML IV SCH ×2 (05:54→11:16)
[2023-12-13 07:54] LABS: Base Excess 2.8 mmol/L (-2.0-2.0)
[2023-12-13] MEDS ORDERED: Glucerna 1.2 Cal 1Liter BOTTLE GT SCH (08:00)
[2023-12-13] MEDS ORDERED: DEXTROSE (50%) 50ML SYRG IV PRN (08:00)
[2023-12-13] MEDS: ACCU-CHEK COMFORT CURVE STRIP VI SCH (08:00)
[2023-12-13] MEDS: SODIUM CHLORIDE 0.9% 1,000 ML IV SCH (08:52)
[2023-12-13] MEDS: InsuLIN REG 1unit/0.01ml Soln (100units/ml) SC SCH (08:56)
[2023-12-13] MEDS: VANCOMYCIN 1GM/200ML 200 ML IV SCH (08:59)
[2023-12-13] MEDS: fentaNYL Drip 2500mCg/250mlNS 250 ML IV SCH (11:25)
[2023-12-13] MEDS: ALBUTEROL SULF 2.5 MG/0.5ML(0.5%) NEB SOLN NEB SCH (12:13)
[2023-12-13] MEDS: IPRATROPIUM BROM 0.5 MG/2.5ML INH SOL NEB SCH (12:13)
[2023-12-13] MEDS ORDERED: levoFLOXacin 500MG 100 ML IV SCH (14:00)
[2023-12-13] MEDS: MEROPENEM 1GM IVPB 50 ML IV SCH (18:11)
[2023-12-13] MEDS: INSULIN LANTUS (GLARGINE) 1 /0.01ml (100units/ml) SC SCH (22:08)
[2023-12-13] MEDS: MEROPENEM 1GM IVPB 50 ML IV ONE (22:17)
[2023-12-14] VITALS (114 sets, daily range): BP systolic 92–125; BP diastolic 50–78; PULSE 69–97; RESP 16–25; TEMP 97–99; O2SAT 82–99
[2023-12-14 03:28] LABS: Basophils # (auto) 0 10 ^3/uL (0-0.2); Basophils % (auto) 0.1 % (0.0-2.0); Eosinophils # (auto) 0 10 ^3/uL (0-0.8); Eosinophils % (auto) 0.1 % (0.0-7.0); Hemoglobin 11.6 g/dL (12.2-16.2); Lymphocytes # (auto) 1.1 10 ^3/uL (0.4-5.4); Lymphocytes % (auto) 8.9 % (10.0-50.0); Mean Corpuscular Hemoglobin 27.1 pg (28.0-32.0); Mean Corpuscular Volume 82.1 fL (80.0-100.0); Monocytes # (auto) 0.5 10 ^3/uL (0-1.3); Monocytes % (auto) 4.3 % (0.0-12.0); Neutrophils # (auto) 10.5 10 ^3/uL (1.6-8.6); Neutrophils % (auto) 86.6 % (37.0-80.0); Nucleated Red Blood Cells % 0.1 %; Red Blood Cells 4.27 10^6/uL (4.0-5.20); Red Cell Distribution Width 19.9 % (11.8-14.3); White Blood Cell 12.1 10^3/uL (4.4-10.8)
[2023-12-14 03:45] LABS: INR 1.35 (0.9-1.15)
[2023-12-14 03:50] LABS: Alkaline Phosphatase 97 U/L (46-116); Anion Gap 5 (5-15); Aspartate Aminotransferase 984 U/L (13-40); BUN/Creatinine Ratio 44.2 (10.0-20.0); Blood Urea Nitrogen 19 mg/dL (9-23); Calcium 8.5 mg/dL (8.7-10.4); Carbon Dioxide 28 mmol/L (20-30); Chloride 115 mmol/L (98-107); Glucose 164 mg/dL (74-106); Potassium 2.9 mmol/L (3.5-5.1); Sodium 148 mmol/L (136-145)
[2023-12-14 03:51] LABS: Bilirubin, Total 1.1 mg/dL (0.2-1.0); Total Protein 4.8 g/dL (5.7-8.2)
[2023-12-14 04:01] LABS: Alanine Aminotransferase 2081 U/L (7-40)
[2023-12-14] MEDS: POTASSIUM CHL 20MEQ/100ML 100 ML IV ONE (05:22)
[2023-12-14] MEDS ORDERED: DEXTROSE (50%) 50ML SYRG IV PRN (09:30)
[2023-12-14 09:49] LABS: Hepatitis B Surface Antigen Negative (Negative)
[2023-12-14 10:09] LABS: Hepatitis A Ab IgM Negative
[2023-12-14 10:10] LABS: Hepatitis B Core IgM Negative
[2023-12-14 10:11] LABS: Hepatitis C Antibody Negative (Negative)
[2023-12-14] MEDS: POTASSIUM CHLORIDE 40 MEQ in SOD CHL 0.45% 1,000 ML IV SCH (11:18)
[2023-12-14] MEDS: POTASSIUM EFFERVESENT TAB 25 MEQ PO SCH (11:18)
[2023-12-14] MEDS: ACCU-CHEK COMFORT CURVE STRIP VI SCH (12:20)
[2023-12-14] MEDS: InsuLIN REG 1unit/0.01ml Soln (100units/ml) SC SCH (12:24)
[2023-12-14] MEDS: [UNRECOGNIZED DRUG - OTHER] IV ONE (14:45)
[2023-12-14] MEDS: SODIUM CHL 0.9% IV ONE (14:45)
[2023-12-14] MEDS: PANTOPRAZOLE 40 MG/10 ML VIAL INJ IV ONE (17:26)
[2023-12-14] MEDS ORDERED: ROSU20TA14 PO (17:44)
[2023-12-14] MEDS ORDERED: VALS40TA2 PO (17:44)
[2023-12-14] MEDS ORDERED: PANT40TA2 PO (17:44)
[2023-12-14] MEDS ORDERED: ASPI81CH59 PO (17:44)
[2023-12-14] MEDS ORDERED: CELE200C PO (17:44)
[2023-12-14] MEDS ORDERED: [UNRECOGNIZED DRUG - CODE] PO (17:44)
[2023-12-14] MEDS ORDERED: PRED10TA PO (17:44)
[2023-12-14] MEDS ORDERED: LEVOTAB51 PO (17:44)
[2023-12-14] MEDS ORDERED: INSU100I28 SC (17:44)
[2023-12-14] MEDS ORDERED: HYDRX10T PO (17:44)
[2023-12-14] MEDS ORDERED: LEVE500T40 PO (17:44)
[2023-12-14] MEDS: ALBUTEROL SULF 2.5 MG/0.5ML(0.5%) NEB SOLN NEB SCH (18:31)
[2023-12-14] MEDS: LEVOTHYROXINE SODIUM 100 MCG/5 ML INJ IV ONE (21:31)
[2023-12-15] VITALS (104 sets, daily range): BP systolic 99–149; BP diastolic 47–84; PULSE 63–105; RESP 12–39; TEMP 92.5–99.1; O2SAT 90–98
[2023-12-15] MEDS: IPRATROPIUM BROM 0.5 MG/2.5ML INH SOL NEB SCH (02:06)
[2023-12-15 03:51] LABS: Basophils # (auto) 0 10 ^3/uL (0-0.2); Basophils % (auto) 0.2 % (0.0-2.0); Eosinophils # (auto) 0 10 ^3/uL (0-0.8); Hematocrit 37.9 % (36.0-46.0); Hemoglobin 12.5 g/dL (12.2-16.2); Mean Corpuscular Hemoglobin 27.1 pg (28.0-32.0); Mean Corpuscular Volume 82.3 fL (80.0-100.0); Monocytes # (auto) 0.6 10 ^3/uL (0-1.3); Neutrophils # (auto) 10.9 10 ^3/uL (1.6-8.6); Neutrophils % (auto) 86.8 % (37.0-80.0); Nucleated Red Blood Cells % 0.1 %; White Blood Cell 12.6 10^3/uL (4.4-10.8)
[2023-12-15 03:55] LABS: Red Cell Distribution Width 20.4 % (11.8-14.3)
[2023-12-15 04:10] LABS: Albumin 3.3 g/dL (3.2-4.8); Alkaline Phosphatase 118 U/L (46-116); Anion Gap 5 (5-15); Aspartate Aminotransferase 433 U/L (13-40); BUN/Creatinine Ratio 49.1 (10.0-20.0); Blood Urea Nitrogen 26 mg/dL (9-23); Calcium 9.1 mg/dL (8.7-10.4); Carbon Dioxide 29 mmol/L (20-30); Chloride 115 mmol/L (98-107); Glucose 218 mg/dL (74-106); Phosphorus 1.2 mg/dL (2.4-5.1); Potassium 4.5 mmol/L (3.5-5.1); Sodium 149 mmol/L (136-145); Total Protein 5.2 g/dL (5.7-8.2)
[2023-12-15 04:25] LABS: Alanine Aminotransferase 1600 U/L (7-40)
[2023-12-15] MEDS: fentaNYL Drip 2500mCg/250mlNS 250 ML IV SCH (06:00)
[2023-12-15] MEDS: ALBUTEROL SULF 2.5 MG/0.5ML(0.5%) NEB SOLN NEB ONE ×2 (06:25→10:02)
[2023-12-15] MEDS ORDERED: LEVOTHYROXINE SODIUM 100 MCG/5 ML INJ IV SCH (07:00)
[2023-12-15 07:26] LABS: Base Excess 2.5 mmol/L (-2.0-2.0)
[2023-12-15] MEDS: PANTOPRAZOLE 40 MG/10 ML VIAL INJ IV SCH (10:12)
[2023-12-15] MEDS ORDERED: levETIRAcetam INJ 200 MG in SODIUM CHL 0.9% 25 ML IV SCH (14:00)
[2023-12-15] MEDS: POTASSIUM PHOSPHATE 22 MEQ in SODIUM CHL 0.9% 100 ML IV ONE (21:33)
[2023-12-15] MEDS: SOD CHL 0.45% 1,000 ML IV SCH (23:00)
[2023-12-16] VITALS (94 sets, daily range): BP systolic 115–158; BP diastolic 62–125; PULSE 52–122; RESP 9–31; TEMP 97.3–100.4; O2SAT 89–100
[2023-12-16 04:46] LABS: Basophils # (auto) 0 10 ^3/uL (0-0.2); Basophils % (auto) 0.2 % (0.0-2.0); Eosinophils # (auto) 0 10 ^3/uL (0-0.8); Eosinophils % (auto) 0.1 % (0.0-7.0); Hematocrit 36.8 % (36.0-46.0); Hemoglobin 12.1 g/dL (12.2-16.2); Lymphocytes # (auto) 2.7 10 ^3/uL (0.4-5.4); Lymphocytes % (auto) 15.9 % (10.0-50.0); Mean Corpuscular Hemoglobin 27.1 pg (28.0-32.0); Mean Corpuscular Hgb Conc. 32.9 g/dL (32.0-36.0); Mean Corpuscular Volume 82.3 fL (80.0-100.0); Monocytes # (auto) 1.8 10 ^3/uL (0-1.3); Neutrophils # (auto) 12.2 10 ^3/uL (1.6-8.6); Neutrophils % (auto) 72.8 % (37.0-80.0); Nucleated Red Blood Cells % 0.1 %; Red Blood Cells 4.47 10^6/uL (4.0-5.20); White Blood Cell 16.7 10^3/uL (4.4-10.8)
[2023-12-16 04:51] LABS: Red Cell Distribution Width 20.2 % (11.8-14.3)
[2023-12-16 04:59] LABS: Alanine Aminotransferase 967 U/L (7-40); Albumin 3.2 g/dL (3.2-4.8); Alkaline Phosphatase 102 U/L (46-116); Anion Gap 7 (5-15); Aspartate Aminotransferase 174 U/L (13-40); BUN/Creatinine Ratio 46.3 (10.0-20.0); Bilirubin, Total 0.9 mg/dL (0.2-1.0); Blood Urea Nitrogen 19 mg/dL (9-23); Calcium 9.2 mg/dL (8.7-10.4); Carbon Dioxide 30 mmol/L (20-30); Chloride 113 mmol/L (98-107); Glucose 111 mg/dL (74-106); Potassium 2.9 mmol/L (3.5-5.1); Sodium 150 mmol/L (136-145); Total Protein 5.1 g/dL (5.7-8.2)
[2023-12-16] MEDS: POTASSIUM CHL 20MEQ/100ML 100 ML IV ONE ×2 (06:23→06:24)
[2023-12-16 08:26] LABS: Base Excess 4.7 mmol/L (-2.0-2.0)
[2023-12-16] MEDS ORDERED: ACETAMINOPHEN 650 MG RECT SUPP PR PRN (11:00)
[2023-12-16] MEDS: LORazepam 2MG/ML-1ML VIAL ONE (11:11)
[2023-12-16] MEDS: LORazepam 2MG/ML-1ML VIAL IV PRN (11:15)
[2023-12-16] MEDS: POTASSIUM PHOSPHATE 44 MEQ in D5W 5% 250 ML IV ONE (12:18)
[2023-12-16] MEDS: MORPHINE SULFATE INJ 2 MG/ml SYRG IV PRN (15:16)
[2023-12-17] VITALS (56 sets, daily range): BP systolic 107–145; BP diastolic 46–81; PULSE 66–102; RESP 12–25; TEMP 97.8–98.7; O2SAT 91–98
[2023-12-17 04:29] LABS: Hemoglobin 12.2 g/dL (12.2-16.2); Lymphocytes % (auto) 24.8 % (10.0-50.0)
[2023-12-17 04:31] LABS: Basophils # (auto) 0 10 ^3/uL (0-0.2); Basophils % (auto) 0.3 % (0.0-2.0); Eosinophils # (auto) 0.3 10 ^3/uL (0-0.8); Eosinophils % (auto) 1.9 % (0.0-7.0); Hematocrit 37.1 % (36.0-46.0); Lymphocytes # (auto) 3.5 10 ^3/uL (0.4-5.4); Mean Corpuscular Hgb Conc. 32.9 g/dL (32.0-36.0); Mean Corpuscular Volume 82.3 fL (80.0-100.0); Monocytes # (auto) 1.3 10 ^3/uL (0-1.3); Monocytes % (auto) 8.9 % (0.0-12.0); Neutrophils # (auto) 9.2 10 ^3/uL (1.6-8.6); Neutrophils % (auto) 64.1 % (37.0-80.0); Red Blood Cells 4.51 10^6/uL (4.0-5.20); Red Cell Distribution Width 19.8 % (11.8-14.3); White Blood Cell 14.3 10^3/uL (4.4-10.8)
[2023-12-17 04:49] LABS: Alanine Aminotransferase 618 U/L (7-40); Albumin 2.9 g/dL (3.2-4.8); Alkaline Phosphatase 92 U/L (46-116); Anion Gap 6 (5-15); Aspartate Aminotransferase 88 U/L (13-40); BUN/Creatinine Ratio 24.1 (10.0-20.0); Calcium 8.4 mg/dL (8.7-10.4); Carbon Dioxide 31 mmol/L (20-30); Chloride 104 mmol/L (98-107); Glucose 90 mg/dL (74-106); Potassium 3.2 mmol/L (3.5-5.1); Sodium 141 mmol/L (136-145)
[2023-12-17 04:50] LABS: Total Protein 4.8 g/dL (5.7-8.2)
[2023-12-17 04:53] LABS: Blood Urea Nitrogen 7 mg/dL (9-23)
[2023-12-17] MEDS: MAGNESIUM SULFATE 1GM/100ML 100 ML IV ONE (10:40)
[2023-12-17] MEDS: POTASSIUM CHL 20MEQ/100ML 100 ML IV SCH (10:40)
[2023-12-17] MEDS ORDERED: OXYCODONE W/ ACETAMINOPHEN 5/325MG TABLET PO PRN (17:30)
[2023-12-17] MEDS: OXYCODONE W/ ACETAMINOPHEN 5/325MG TABLET PO ONE (17:53)
[2023-12-17] MEDS: MORPHINE SULFATE INJ 2 MG/ml SYRG IV PRN (20:12)
[2023-12-18] VITALS (27 sets, daily range): BP systolic 110–140; BP diastolic 59–79; PULSE 75–99; RESP 15–27; TEMP 97.6–98.7; O2SAT 92–99
[2023-12-18 04:00] LABS: Basophils # (auto) 0 10 ^3/uL (0-0.2); Basophils % (auto) 0.3 % (0.0-2.0); Eosinophils # (auto) 0.3 10 ^3/uL (0-0.8); Eosinophils % (auto) 2.4 % (0.0-7.0); Hematocrit 40.8 % (36.0-46.0); Hemoglobin 13.7 g/dL (12.2-16.2); Lymphocytes # (auto) 3.1 10 ^3/uL (0.4-5.4); Lymphocytes % (auto) 22.2 % (10.0-50.0); Mean Corpuscular Hemoglobin 27.3 pg (28.0-32.0); Mean Corpuscular Hgb Conc. 33.5 g/dL (32.0-36.0); Mean Corpuscular Volume 81.5 fL (80.0-100.0); Monocytes # (auto) 1.4 10 ^3/uL (0-1.3); Monocytes % (auto) 9.8 % (0.0-12.0); Neutrophils # (auto) 9.1 10 ^3/uL (1.6-8.6); Neutrophils % (auto) 65.3 % (37.0-80.0); Red Blood Cells 5.01 10^6/uL (4.0-5.20)
[2023-12-18 04:03] LABS: Red Cell Distribution Width 20.1 % (11.8-14.3)
[2023-12-18 04:15] LABS: Alanine Aminotransferase 503 U/L (7-40); Albumin 3.2 g/dL (3.2-4.8); Alkaline Phosphatase 121 U/L (46-116); Anion Gap 6 (5-15); Aspartate Aminotransferase 59 U/L (13-40); Calcium 9.1 mg/dL (8.7-10.4); Carbon Dioxide 31 mmol/L (20-30); Chloride 101 mmol/L (98-107); Glucose 110 mg/dL (74-106); Potassium 3.6 mmol/L (3.5-5.1); Sodium 138 mmol/L (136-145); Total Protein 5.2 g/dL (5.7-8.2)
[2023-12-18 04:21] LABS: BUN/Creatinine Ratio 15.6 (10.0-20.0); Blood Urea Nitrogen < 5 mg/dL (9-23)
[2023-12-18] MEDS ORDERED: OXYCODONE W/ ACETAMINOPHEN 5/325MG TABLET PO PRN ×2 (08:45→09:00)
[2023-12-18] MEDS: OXYCODONE W/ ACETAMINOPHEN 5/325MG TABLET PO PRN ×2 (09:27→19:43)
[2023-12-18] MEDS: ALPRAZolam 0.25 MG TAB PO PRN (18:03)
[2023-12-19] VITALS (20 sets, daily range): BP systolic 112–137; BP diastolic 59–82; PULSE 73–90; RESP 14–20; TEMP 97.2–98.1; O2SAT 94–100
[2023-12-19] MEDS ORDERED: LEVO500T91 PO ×2 (08:35)
[2023-12-20] VITALS (9 sets, daily range): BP systolic 123–131; BP diastolic 63–82; PULSE 81–89; RESP 18–19; TEMP 97.8–97.9; O2SAT 93–98
== END 2023-12-20 10:47 | disposition home or self-care (01) | DRG 870 ==
LOC: ER 11:36 → EDBD 11:36 → OVERFLOW 15:39 → ICU WEST 12-12 22:50 → TELE-WESTW 12-18 10:27
PROVIDERS: ADMIT Nurse Practitioner Family; ATTEND Internal Medicine Infectious Disease
PROC: 5A1955Z Respiratory Ventilation, Greater than 96 Consecutive Hours (ICD-10-PCS; principal; 2023-12-11)
PROC: 0BH17EZ Insertion of Endotracheal Airway into Trachea, Via Natural or Artificial Opening (ICD-10-PCS; 2023-12-11)
PROC: 0B9D8ZX Drainage of Right Middle Lung Lobe, Via Natural or Artificial Opening Endoscopic, Diagnostic (ICD-10-PCS; 2023-12-15)
DX: A41.9 Sepsis, unspecified organism (principal); G93.41 Metabolic encephalopathy; I21.4 Non-ST elevation (NSTEMI) myocardial infarction; K72.00 Acute and subacute hepatic failure without coma; R65.21 Severe sepsis with septic shock; J80 Acute respiratory distress syndrome; J15.0 Pneumonia due to Klebsiella pneumoniae; G93.1 Anoxic brain damage, not elsewhere classified; I42.9 Cardiomyopathy, unspecified; M62.82 Rhabdomyolysis; N17.9 Acute kidney failure, unspecified; J44.0 Chronic obstructive pulmonary disease with (acute) lower respiratory infection; E87.4 Mixed disorder of acid-base balance; I50.42 Chronic combined systolic (congestive) and diastolic (congestive) heart failure; Z20.822 Contact with and (suspected) exposure to COVID-19; E03.9 Hypothyroidism, unspecified; E78.5 Hyperlipidemia, unspecified; E87.5 Hyperkalemia; F10.20 Alcohol dependence, uncomplicated; I48.91 Unspecified atrial fibrillation; K74.60 Unspecified cirrhosis of liver; I11.0 Hypertensive heart disease with heart failure; E66.9 Obesity, unspecified; D64.9 Anemia, unspecified; E11.65 Type 2 diabetes mellitus with hyperglycemia; F17.200 Nicotine dependence, unspecified, uncomplicated; G40.409 Other generalized epilepsy and epileptic syndromes, not intractable, without status epilepticus; G89.4 Chronic pain syndrome; Z88.0 Allergy status to penicillin; Z96.649 Presence of unspecified artificial hip joint; Z96.653 Presence of artificial knee joint, bilateral; Z86.711 Personal history of pulmonary embolism; Z99.81 Dependence on supplemental oxygen; Z79.4 Long term (current) use of insulin; Z68.31 Body mass index [BMI] 31.0-31.9, adult
CPT/HCPCS: 31500; 31624; 36415; 36556; 36600; 70450; 71045; 74176; 76705; 80053; 80074; 80202; 80307; 80320; 80329; 81001; 82140; 82550; 82805; 82962; 83036; 83605; 83735; 83880; 84100; 84132; 84443; 84484; 85007; 85025; 85027; 85610; 87040; 87070; 87077; 87086; 87186; 87205; 87426; 87804; 92610; 93005; 93306; 94002; 94003; 94640; 94667; 94668; 95819; 96365; 96367; 97110; 97116; 97163; 97530; G0378; J1815; J1956; J2185; J2470; J3480; J3490; J7060